=== PATIENT | female | born 1955 | race Caucasian/White ===

== ENCOUNTER 2018-03-15 12:45 | Outpatient (CLI) | payer OTHER | END 2018-03-15 12:46 | disposition home or self-care (01) | LOC: BICMAMMO 12:45 | PROVIDERS: ATTEND Family Medicine | DX: Z12.31 Encounter for screening mammogram for malignant neoplasm of breast (principal); R92.1 Mammographic calcification found on diagnostic imaging of breast; Z80.3 Family history of malignant neoplasm of breast | CPT/HCPCS: 77063; 77067 ==

== ENCOUNTER 2018-03-24 09:44 | Day surgery (SDC) | payer OTHER ==
[2018-03-23 12:32] VITALS: BMI 46.5
--- NOTE | 2018-03-24 14:56 | OP ---
DATE OF PROCEDURE: 03/24/2018 PROCEDURE PERFORMED: Colonoscopy (screening). INDICATION FOR PROCEDURE: Screening for malignant neoplasm of the colon. DESCRIPTION OF PROCEDURE: After the risks and benefits of the procedure were explained to the patient including risks of bleeding, infection, perforation, reactions to anesthesia, aspiration, and/or pain, informed consent was obtained. The patient was then taken to the endoscopy suite, where deep sedation was administered via propofol and anesthesia support. Once adequate sedation was achieved, the patient was maneuvered into the left lateral decubitus position, and when in proper position, a digital rectal examination was performed. Upon completion of this, the standard colonoscope was introduced into the rectum and advanced without difficulty to the terminal ileum. The quality of the prep was excellent. The patient tolerated the procedure well with no immediate perioperative complications. At the conclusion of the procedure, all equipment was removed with the patient taken to Day Stay in satisfactory condition. COLONOSCOPY FINDINGS: Digital rectal exam, normal. Colon findings: Normal-appearing mucosa was seen within the terminal ileum as well as at the appendiceal orifice and ileocecal valve. Normal-appearing mucosa was then seen in the cecum, ascending, transverse, descending, sigmoid colon, and rectum. There was no evidence of polypoid tissue throughout this entire examination. No abnormalities were seen on rectal retroflexion. IMPRESSION: Normal colonoscopy. RECOMMENDATIONS: 1. We would repeat colonoscopy in 10 years as part of screening for malignant neoplasm of the colon. 2. Follow up in the GI Clinic in 4 to 6 weeks for followup on a regular bowel habits. Job ID: [id number]
[2018-03-24] MEDS ORDERED: PHENYLEPHRINE-NS 100 MCG/ML 10 ML SYRINGE ONE (21:33)
[2018-03-24] MEDS ORDERED: Lidocaine 1% PF 5 ML VIAL ONE (21:33)
[2018-03-24] MEDS ORDERED: PROPOFOL 200 MG/20 ML VIAL ONE (21:33)
== END 2018-03-24 14:57 | disposition home or self-care (01) ==
LOC: SDC 09:44
PROVIDERS: ATTEND Internal Medicine
PROC: 0DJD8ZZ Inspection of Lower Intestinal Tract, Via Natural or Artificial Opening Endoscopic (ICD-10-PCS; principal; 2018-03-24)
DX: Z12.11 Encounter for screening for malignant neoplasm of colon (principal); F32.9 Major depressive disorder, single episode, unspecified; I10 Essential (primary) hypertension; E78.00 Pure hypercholesterolemia, unspecified; Z79.899 Other long term (current) drug therapy
CPT/HCPCS: J2001; J2704

== ENCOUNTER 2019-10-11 18:43 | Emergency (ER) | payer OTHER ==
[2019-10-12 14:51] LABS: SARS-CoV-2 MS2 Positive; SARS-CoV-2 N Gene Negative; SARS-CoV-2 S Gene Negative; SARS-CoV-2 orf1ab Negative
== END 2019-10-11 19:02 | disposition home or self-care (01) ==
LOC: ERS 18:43
DX: J34.89 Other specified disorders of nose and nasal sinuses (principal); Z20.828 Contact with and (suspected) exposure to other viral communicable diseases; I10 Essential (primary) hypertension; E78.5 Hyperlipidemia, unspecified; F41.9 Anxiety disorder, unspecified
CPT/HCPCS: 87635; 99283; U0003

== ENCOUNTER 2020-05-12 13:58 | Inpatient (IN) | payer BC, OTHER ==
[~2020-05-12 13:58] MED LIST: Iopamidol-370 76% 500 ML 1 ML ONE
--- NOTE | 2020-05-12 14:51 | RAD ---
RADIOGRAPH CHEST 2 VIEW: DATE: 05/12/2020 TIME: 2:31 PM HISTORY: 65-year-old female with dyspnea and productive cough COMPARISON: 11/16/2011 FINDINGS: New finding of numerous multifocal ill-defined nodular infiltrates throughout upper, mid, and lower l viviana perales. No cardiomegaly, pleural effusion, or pneumothorax. IMPRESSION: Evidence for diffuse mild to moderate COVID 19 pneumonia
[2020-05-12 15:05] LABS: #Lymphocytes 1.4 thou/uL (1.20-3.40); #Monocytes 0.6 thou/uL (0.11-0.59); #Neutrophils 5.4 thou/uL (1.40-6.50); %Basophils 0.4 % (0.0-1.0); %Eosinophils 0.6 % (0.0-10.0); %Lymphocytes 19.1 % (21.0-51.0); %Neutrophils 71.9 % (42.0-75.0); Hemoglobin 13.7 g/dL (12.0-16.0); Mean Corpuscular HGB CONC 32.9 g/dL (32.0-36.0); Mean Corpuscular Volume 91.2 fL (78.0-98.0); Mean Platelet Volume 7.7 fL (7.4-10.4); Platelet Count 296 thou/uL (130-400); Red Blood Cell (RBC) Count 4.57 mill/uL (4.20-5.40); White Blood Cell (WBC) Count 7.5 thou/uL (4.8-10.8)
[2020-05-12 15:27] LABS: ALT (SGPT) 24 U/L (8-55); AST (SGOT) 31 U/L (5-34); Albumin 3.8 g/dL (3.4-4.8); Alkaline Phosphatase 111 U/L (40-110); Anion Gap 17 mmol/L (10-20); BUN (Urea Nitrogen) 30 mg/dL (9.8-20.1); Bilirubin, Total 0.8 mg/dL (0.2-1.2); Calc. Creatinine Clearance 0 mL/min (70-130); Carbon Dioxide 24 mmol/L (23-31); Chloride 105 mmol/L (98-107); Globulin 3.6 g/dL (2.4-3.5); Glucose 98 mg/dL (80-115); Potassium 3.8 mmol/L (3.5-5.1); Protein, Total 7.4 g/dL (5.8-8.1); Sodium 142 mmol/L (136-145)
[2020-05-12 16:02] LABS: SARS-CoV-2 NAA Rapid Test DETECTED (NotDetected)
[2020-05-12] MEDS ORDERED: Dexamethasone 4 mg/ml Vial ONE (16:10)
--- NOTE | 2020-05-12 16:57 | CT ---
Exam: CT angiogram of the chest HISTORY: Elevated d-dimer. Shortness of breath, dyspnea and generalized weakness. Cough times COMPARISON: None TECHNIQUE: CT angiogram of the chest is performed in the axial plane. Three-dimensional reformatted i mages are submitted for interpretation FINDINGS: Mediastinum: No mass, lymphadenopathy or hematoma. Heart: Normal size. No significant pericardial fluid. Aorta: No aneurysm or dissection Upper solid abdominal viscera: No abnormality enhancement. Trachea and central bronchi: Patent Pleural spaces: No effusion Lung parenchyma: Diffuse peripheral groundglass opacities, compatible with COVID 19 pneumonia. Pneumothorax: None Osseous structures: No lytic or blastic lesions Pulmonary arteries: Adequate contrast opacification pulmonary arterial system to the level of segment al arteries. No filling defect to suggest pulmonary embolism IMPRESSION: 1. Multi lobar COVID pneumonia 2. No evidence of pulmonary artery embolism to the level of the segmental arteries.
[2020-05-12] MEDS ORDERED: Acetaminophen 650 MG Suppository PR PRN (17:55)
[2020-05-12] MEDS ORDERED: Albuterol 200 PUFF (6.7GM INHALER) INH PRN (18:05)
[2020-05-12] MEDS: Sodium Chloride 0.9% 1,000 ML IV SCH (18:34)
--- NOTE | 2020-05-12 19:30 | PDOC.HHP ---
Hospitalist HPI History of Present Illness: ADMISSION DATE: 05/12/2020 TIME OF ASSESSMENT: 1700 PRIMARY CARE PHYSICIAN: Dr. Goodrich CHIEF COMPLAINT: Cough and shortness of breath HPI: This is a 65-year-old woman who presents to the emergency department due to persistent coughing fits and subsequent shortness of breath associated with Covid infection which was diagnosed 2 weeks ago. The patient states that she is felt generally weak and has been very sedentary over the last several days. She saw her primary care physician Dr. Jeffrey who prescribed a 5-day course of azithromycin, she completed this 2 days ago. He also gave a 6-day course of oral steroids which she completed yesterday. She was advised to come in if her symptoms did not improve, prompting her to seek medical attention in the ER today. She states the most difficult thing to deal with has been the persisting coughing fits productive for clear sputum but leading to episodes of difficulty with her breathing. Minimal movement such as turning in bed exacerbates her cough. She complains of diffuse soreness involving her thorax as well as ab domen due to the coughing. She has also been experiencing stress incontinence due to coughing. Has not had any fevers or chills but feels generally weak. ROS: No nausea or vomiting. Denies any changes with bowel movements. No dysuria or hematuria. All other review of systems apart from what is mentioned above are negative. ED COURSE: She was initially hypotensive in the ER with a BP of 93/76 and her sats were 86% on room air. Her blood pressure improved to 118/85 and her sats improved to 98% on 2 L by nasal cannula. EKG done in the emergency department showed normal sinus rhythm with a heart rate of 68. No ST changes or T wave abnormalities. Chest x-ray was done showing evidence for diffuse mild to moderate Covid pneumonia. No cardiomegaly, pleural effusion or pneumothorax. Labs done in the ER included a D-dimer which was elevated at 1.36. She therefore underwent a CT angiogram which demonstrated multi lobar Covid pneumon ia but no evidence of PE. Laboratory studies showed a white cell count of 7.5, hemoglobin 13.7, platelets 296, BUN 30, creatinine 1.19, GFR 46, alk phos 111, LFTs normal. She received 1 L normal saline in the emergency department was also IV dexamethasone Rapid Covid testing was positive. PAST MEDICAL HISTORY: 1. Hypertension 2. Hyperlipidemia 3. Anxiety 4. Depression 5. Asthma as a child PAST SURGICAL HISTORY: 1. Tonsillectomy SOCIAL HISTORY: Patient is fully independent at baseline. She denies any histor y of tobacco use, alcohol consumption or drug use. FAMILY HISTORY: Noncontributory Allergies/Adverse Reactions: Allergy/AdvReac Type Severity Reaction Status Date / Time No Known Allergies Allergy Verified 07/02/19 20:23 Home Medications: Medication Instructions Recorded Confirmed Type Atorvastatin Calcium 40 mg PO HS 03/23/18 03/23/18 History FLUoxetine HCl [Fluoxetine HCl] 40 mg PO HS 03/23/18 03/23/18 History Triamterene/Hydrochlorothiazid 1 each PO HS 03/23/18 03/23/18 History [Triamterene-Hctz 37.5-25 mg Cp] Hospitalist HPI ROS All other systems reviewed; all pertinent +/- noted in HPI/Subj Hospitalist Exam Vitals: VS: Temp 98.2, HR 60, BP 28/82, RR 20, O2 sat 100% on 2 L O2 via nasal cannula Weight 257 lb 15.053 oz General Appearance: NAD, awake alert Eye: PERRL, anicteric sclera ENT: normocephalic atraumatic Neck: supple, no lymphadenopathy Heart: RRR, normal peripheral pulses Respiratory: no wheezes, no tachypnea Respiratory - other findings: Coarse lung sounds, coughing exacerbated by deep inspiration Gastrointestinal: soft, non-tender, non-distended, no palpable masses, no guarding, no rigidity Extremities: no edema Skin: normal turgor, no lesions, no rashes Neurological: cranial nerve grossly intact, normal sensation to touch, no weakness Musculoskeletal: normal tone, normal strength, no muscle wasting Psychiatric: normal affect, normal behavior, A&O x 3, oriented to person Hospitalist Results Result Diagrams: 05/12/20 14:56 05/12/20 14:56 Lab results: Laboratory Last Values WBC 7.5 thou/uL (4.8-10.8) 05/12/20 14:56 RBC 4.57 mill/uL (4.20-5.40) 05/12/20 14:56 Hgb 13.7 g/dL (12.0-16.0) 05/12/20 14:56 Hct 41.7 % (36.0-47.0) 05/12/20 14:56 MCV 91.2 fL (78.0-98.0) 05/12/20 14:56 MCH 30.0 pg (27.0-31.0) 05/12/20 14:56 MCHC 32.9 g/dL (32.0-36.0) 05/12/20 14:56 RDW 12.0 % (11.5-14.5) 05/12/20 14:56 Plt Count 296 thou/uL (130-400) 05/12/20 14:56 MPV 7.7 fL (7.4-10.4) 05/12/20 14:56 Neutrophils % 71.9 % (42.0-75.0) 05/12/20 14:56 Lymphocytes % 19.1 % (21.0-51.0) L 05/12/20 14:56 Monocytes % 8.0 % (0.0-10.0) 05/12/20 14:56 Eosinophils % 0.6 % (0.0-10.0) 05/12/20 14:56 Basophils % 0.4 % (0.0-1.0) 05/12/20 14:56 Neutrophils # 5.4 thou/uL (1.40-6.50) 05/12/20 14:56 Lymphocytes # 1.4 thou/uL (1.20-3.40) 05/12/20 14:56 Monocytes # 0.6 thou/uL (0.11-0.59) H 05/12/20 14:56 Eosinophils # 0.0 thou/uL (0.0-0.7) 05/12/20 14:56 Basophils # 0.0 thou/uL (0.0-0.2) 05/12/20 14:56 D-Dimer 1.36 *mcg/mL (0.27-0.43) H 05/12/20 14:56 Sodium 142 mmol/L (136-145) 05/12/20 14:56 Potassium 3.8 mmol/L (3.5-5.1) 05/12/20 14:56 Chloride 105 mmol/L (98-107) 05/12/20 14:56 Carbon Dioxide 24 mmol/L (23-31) 05/12/20 14:56 Anion Gap 17 mmol/L (10-20) 05/12/20 14:56 BUN 30 mg/dL (9.8-20.1) H 05/12/20 14:56 Creatinine 1.19 mg/dL (0.6-1.1) H 05/12/20 14:56 Estimated GFR (MDRD) 46 05/12/20 14:56 Glucose 98 mg/dL (80-115) 05/12/20 14:56 Calcium 9.0 mg/dL (7.8-10.44) 05/12/20 14:56 Magnesium 2.1 mg/dL (1.6-2.6) 05/12/20 14:57 Total Bilirubin 0.8 mg/dL (0.2-1.2) 05/12/20 14:56 AST 31 U/L (5-34) 05/12/20 14:56 ALT 24 U/L (8-55) 05/12/20 14:56 Alkaline Phosphatase 111 U/L (40-110) H 05/12/20 14:56 Troponin I Less than 0.010 ng/mL (< 0.028) 05/12/20 14:56 Serum Total Protein 7.4 g/dL (5.8-8.1) 05/12/20 14:56 Albumin 3.8 g/dL (3.4-4.8) 05/12/20 14:56 Globulin 3.6 g/dL (2.4-3.5) H 05/12/20 14:56 Albumin/Globulin Ratio 1.1 g/dL (1.2-2.2) L 05/12/20 14:56 Influenza A RNA INAAT Not Detected (NotDetected) 05/12/20 15:12 Influenza B RNA INAAT Not Detected (NotDetected) 05/12/20 15:12 SARS-CoV-2 Rap RNA(RT-PCR) DETECTED (NotDetected) A* 05/12/20 15:12 CT scan - chest Status: report reviewed by tx Hospitalist H&P A/P (1) Pneumonia due to COVID-19 virus Code(s): U07.1 - COVID-19; J12.82 - PNEUMONIA DUE TO CORONAVIRUS DISEASE 2019 Status: Acute (2) MARICHUY (acute kidney injury) Code(s): N17.9 - ACUTE KIDNEY FAILURE, UNSPECIFIED Status: Acute (3) Persistent cough Code(s): R05 - COUGH Status: Acute (4) Essential hypertension Code(s): I10 - ESSENTIAL (PRIMARY) HYPERTENSION Status: Chronic (5) Hyperlipidemia Code(s): E78.5 - HYPERLIPIDEMIA, UNSPECIFIED Status: Chronic (6) Anxiety and depression Code(s): F41.9 - ANXIETY DISORDER, UNSPECIFIED; F32.9 - MAJOR DEPRESSIVE DISORDER, SINGLE EPISODE, UNSPECIFIED Status: Chronic Plan: Continue to monitor O2 sats Dexamethasone 6 mg IV daily Zinc and Vitamin C ordered Not a candidate for Remdesivir given 14 days since start of symptoms Albuterol inhalers prn Tessalon for cough Gentle hydration Monitor renal function Avoid nephrotoxic meds Resume home statin Hold antihypertensives for now given low BP GI prophylaxis with Famotidine 20 mg BID DVT prophylaxis with mechanical SCDs and enhanced Lovenox (40 mg BID) CODE STATUS FULL Case discussed with attending who agrees with plan as above.
[2020-05-12] MEDS: FLUoxetine HCl 20 MG CAP PO SCH (21:57)
[2020-05-12] MEDS: Atorvastatin Calcium 40 MG TAB PO SCH (21:57)
[2020-05-12] MEDS: Enoxaparin Sodium 40 MG/0.4 ML SYRINGE SC SCH (21:58)
[2020-05-12] MEDS: Famotidine 20 MG TAB PO SCH (21:58)
[2020-05-12] MEDS ORDERED: Famotidine 20 MG TAB ONE (22:00)
[2020-05-12] MEDS ORDERED: Enoxaparin Sodium 40 MG/0.4 ML SYRINGE ONE (22:00)
[2020-05-13] MEDS: Sodium Chloride 0.9% 1,000 ML IV SCH ×2 (03:33→19:58)
[2020-05-13 04:28] LABS: #Lymphocytes 0.8 thou/uL (1.20-3.40); #Monocytes 0.1 thou/uL (0.11-0.59); %Eosinophils 0.4 % (0.0-10.0); %Lymphocytes 20.3 % (21.0-51.0); %Monocytes 2.2 % (0.0-10.0); %Neutrophils 77.2 % (42.0-75.0); Hemoglobin 12.2 g/dL (12.0-16.0); Mean Corpuscular HGB CONC 33.1 g/dL (32.0-36.0); Mean Corpuscular Hemoglobin 29.7 pg (27.0-31.0); Mean Corpuscular Volume 89.7 fL (78.0-98.0); Mean Platelet Volume 7.7 fL (7.4-10.4); Platelet Count 283 thou/uL (130-400); RBC Distribution Width 11.9 % (11.5-14.5); White Blood Cell (WBC) Count 3.9 thou/uL (4.8-10.8)
[2020-05-13 04:47] LABS: Lactic Acid 3.5 mmol/L (0.5-2.2)
[2020-05-13 04:54] LABS: Anion Gap 16 mmol/L (10-20); BUN (Urea Nitrogen) 25 mg/dL (9.8-20.1); Calc. Creatinine Clearance 125 mL/min (70-130); Calcium 8.4 mg/dL (7.8-10.44); Carbon Dioxide 20 mmol/L (23-31); Chloride 106 mmol/L (98-107); Glucose 167 mg/dL (80-115); Potassium 3.9 mmol/L (3.5-5.1); Sodium 138 mmol/L (136-145)
[2020-05-13] MEDS ORDERED: Dexamethasone 6 MG in Sodium Chloride 0.9% 50 ML IVPB SCH (09:00)
[2020-05-13] MEDS: Enoxaparin Sodium 40 MG/0.4 ML SYRINGE SC SCH ×2 (10:03→20:00)
[2020-05-13] MEDS: Ascorbic Acid 500 mg Chewable Tablet PO SCH (10:03)
[2020-05-13] MEDS: Famotidine 20 MG TAB PO SCH ×2 (10:04→19:59)
[2020-05-13] MEDS: Zinc Sulfate 220 MG CAP PO SCH (10:04)
[2020-05-13] MEDS: Dexamethasone 4 mg/ml Vial SLOW IVP SCH (10:10)
--- NOTE | 2020-05-13 13:44 | PDOC.HOSPP ---
- Subjective Encounter Date: 05/13/20 Encounter Time: 13:42 Subjective: Ms. Flowers was seen today in follow-up of COVID pneumonia and respiratory failure. She notes some dyspnea with minimal exertion. - Objective Vital Signs & Weight: Vital Signs (12 hours) Temp Pulse Resp BP Pulse Ox 05/13/20 11:58 98.3 F 62 16 127/75 95 05/13/20 08:20 97 05/13/20 08:10 98.9 F 55 L 20 152/68 H 97 05/13/20 04:42 98.2 F 68 18 112/58 L 98 05/13/20 04:00 98 Weight Weight 257 lb 15.053 oz I&O: 05/12/20 05/13/20 05/14/20 06:59 06:59 06:59 Intake Total 240 Balance 240 Result Diagrams: 05/13/20 04:04 05/13/20 04:04 Hospitalist ROS - Medication Medications: Active Medications Generic Name Dose Route Start Last Admin Trade Name Freq PRN Reason Stop Dose Admin Ascorbic Acid 1,000 mg 05/13/20 09:00 05/13/20 10:03 Ascorbic Acid 500 Mg Chewable Tablet PO 1,000 mg DAILY EDWINA Administration Atorvastatin Calcium 40 mg 05/12/20 21:00 05/12/20 21:57 Atorvastatin Calcium 40 Mg Tab PO 40 mg HS EDWINA Administration Dexamethasone 6 mg 05/13/20 09:00 05/13/20 10:10 Dexamethasone 4 Mg/Ml Vial SLOW IVP 6 mg DAILY EDWINA Administration Enoxaparin Sodium 40 mg 05/12/20 21:00 05/13/20 10:03 Enoxaparin Sodium 40 Mg/0.4 Ml Syringe SC 40 mg 0900,2100 EDWINA Administration Famotidine 20 mg 05/12/20 21:00 05/13/20 10:04 Famotidine 20 Mg Tab PO 20 mg BID EDWINA Administration Fluoxetine HCl 40 mg 05/12/20 21:00 05/12/20 21:57 Fluoxetine Hcl 20 Mg Cap PO 40 mg HS EDWINA Administration Sodium Chloride 1,000 mls @ 45 mls/hr 05/12/20 18:15 05/13/20 03:33 Normal Saline 0.9% IV 1,000 mls .[id number] EDWINA Administration Zinc Sulfate 220 mg 05/13/20 09:00 05/13/20 10:04 Zinc Sulfate 220 Mg Cap PO 220 mg DAILY EDWINA Administration Hospitalist Exam Vitals: Vital Signs (12 hours) Temp Pulse Resp BP Pulse Ox 05/13/20 11:58 98.3 F 62 16 127/75 95 05/13/20 08:20 97 05/13/20 08:10 98.9 F 55 L 20 152/68 H 97 05/13/20 04:42 98.2 F 68 18 112/58 L 98 05/13/20 04:00 98 Weight Weight 257 lb 15.053 oz Eye: PERRL, anicteric sclera Heart: RRR, no murmur, no gallops, no rubs, normal peripheral pulses Respiratory: no wheezes, no ronchi, rales (at both bases) Gastrointestinal: soft, non-tender, non-distended, normal bowel sounds, no palpable masses, no hepatomegaly Extremities: no cyanosis, 1+ LE edema (good d.p. pulses bilaterally, no lesions) Hosp A/P (1) Pneumonia due to COVID-19 virus Code(s): U07.1 - COVID-19; J12.82 - PNEUMONIA DUE TO CORONAVIRUS DISEASE 2019 Status: Acute (2) Anxiety and depression Code(s): F41.9 - ANXIETY DISORDER, UNSPECIFIED; F32.9 - MAJOR DEPRESSIVE DISORDER, SINGLE EPISODE, UNSPECIFIED Status: Chronic (3) Essential hypertension Code(s): I10 - ESSENTIAL (PRIMARY) HYPERTENSION Status: Chronic (4) Hyperlipidemia Code(s): E78.5 - HYPERLIPIDEMIA, UNSPECIFIED Status: Chronic - Plan * Pneumonia and respiratory failure due to COVID-19- continue Decadron and incentive spirometry * Her symptoms started around April 25, and therefore is out of the window for Remdesivir * Monitor Inflammatory markers * HTN- will need to reconcile and re-start medications * Anxiety and depression- continue Fluoxetine
[2020-05-13] MEDS: guaiFENesin/Codeine 200 mg/20 mg 10 ml Cup PO PRN (16:15)
[2020-05-13] MEDS: Benzonatate 100 MG CAP PO PRN (16:15)
[2020-05-13] MEDS: FLUoxetine HCl 20 MG CAP PO SCH (19:59)
[2020-05-13] MEDS: Atorvastatin Calcium 40 MG TAB PO SCH (20:00)
[2020-05-13] MEDS: Fish Oil 1,000 MG CAP PO SCH (20:00)
[2020-05-14] MEDS: Temazepam 15 MG CAP PO PRN ×2 (00:42→20:07)
[2020-05-14] MEDS: guaiFENesin/Codeine 200 mg/20 mg 10 ml Cup PO PRN ×2 (00:42→14:58)
[2020-05-14] MEDS: Benzonatate 100 MG CAP PO PRN ×2 (00:42→14:58)
[2020-05-14] MEDS: Enoxaparin Sodium 40 MG/0.4 ML SYRINGE SC SCH ×2 (10:33→20:06)
[2020-05-14] MEDS: Dexamethasone 4 mg/ml Vial SLOW IVP SCH (10:34)
[2020-05-14] MEDS: Zinc Sulfate 220 MG CAP PO SCH (10:35)
[2020-05-14] MEDS: Ascorbic Acid 500 mg Chewable Tablet PO SCH (10:35)
[2020-05-14] MEDS: Famotidine 20 MG TAB PO SCH ×2 (10:35→20:06)
--- NOTE | 2020-05-14 14:24 | PDOC.HOSPP ---
- Subjective Encounter Date: 05/14/20 Encounter Time: 14:22 Subjective: Ms. Flowers was seen today in follow-up of COVID pneumonia. She notes feeling more tired today. She also notes some chest tightness, otherwise ok. - Objective Vital Signs & Weight: Vital Signs (12 hours) Temp Pulse Resp BP Pulse Ox 05/14/20 11:33 97.7 F 63 18 126/70 94 L 05/14/20 08:35 97.7 F 54 L 20 150/71 H 97 Weight Weight 257 lb 15.053 oz I&O: 05/13/20 05/14/20 05/15/20 06:59 06:59 06:59 Intake Total 240 1690 360 Output Total 1300 Balance 240 390 360 Result Diagrams: 05/13/20 04:04 05/13/20 04:04 Additional Labs: Accuchecks 05/13/20 20:10 POC Glucose 178 H Hospitalist ROS - Medication Medications: Active Medications Generic Name Dose Route Start Last Admin Trade Name Freq PRN Reason Stop Dose Admin Ascorbic Acid 1,000 mg 05/13/20 09:00 05/14/20 10:35 Ascorbic Acid 500 Mg Chewable Tablet PO 1,000 mg DAILY EDWINA Administration Atorvastatin Calcium 40 mg 05/12/20 21:00 05/13/20 20:00 Atorvastatin Calcium 40 Mg Tab PO 40 mg HS EDWINA Administration Benzonatate 100 mg 05/12/20 18:07 05/14/20 00:42 Benzonatate 100 Mg Cap PO 100 mg TIDPRN PRN Administration Cough Dexamethasone 6 mg 05/13/20 09:00 05/14/20 10:34 Dexamethasone 4 Mg/Ml Vial SLOW IVP 6 mg DAILY EDWINA Administration Enoxaparin Sodium 40 mg 05/12/20 21:00 05/14/20 10:33 Enoxaparin Sodium 40 Mg/0.4 Ml Syringe SC 40 mg 0900,2100 EDWINA Administration Famotidine 20 mg 05/12/20 21:00 05/14/20 10:35 Famotidine 20 Mg Tab PO 20 mg BID EDWINA Administration Fish Oil 1,000 mg 05/13/20 21:00 05/13/20 20:00 Fish Oil 1,000 Mg Cap PO 1,000 mg HS EDWINA Administration Fluoxetine HCl 40 mg 05/12/20 21:00 05/13/20 19:59 Fluoxetine Hcl 20 Mg Cap PO 40 mg HS EDWINA Administration Guaifenesin/Codeine Phosphate 10 ml 05/13/20 13:44 05/14/20 00:42 Guaifenesin/Codeine 200 Mg/20 Mg 10 Ml Cup PO 10 ml Q6H PRN Administration Cough Sodium Chloride 1,000 mls @ 45 mls/hr 05/12/20 18:15 05/13/20 19:58 Normal Saline 0.9% IV 1,000 mls .[id number] EDWINA Administration Temazepam 15 mg 05/13/20 13:44 05/14/20 00:42 Temazepam 15 Mg Cap PO 15 mg HSPRN PRN Administration Insomnia Zinc Sulfate 220 mg 05/13/20 09:00 05/14/20 10:35 Zinc Sulfate 220 Mg Cap PO 220 mg DAILY EDWINA Administration Hospitalist Exam Vitals: Vital Signs (12 hours) Temp Pulse Resp BP Pulse Ox 05/14/20 11:33 97.7 F 63 18 126/70 94 L 05/14/20 08:35 97.7 F 54 L 20 150/71 H 97 Weight Weight 257 lb 15.053 oz Eye: PERRL, anicteric sclera Heart: RRR, no murmur, no gallops, no rubs, normal peripheral pulses Respiratory: no wheezes, no ronchi, rales (at the bases) Gastrointestinal: soft, non-tender, non-distended, normal bowel sounds, no palpable masses Extremities: no cyanosis, 1+ LE edema Hosp A/P (1) Pneumonia due to COVID-19 virus Code(s): U07.1 - COVID-19; J12.82 - PNEUMONIA DUE TO CORONAVIRUS DISEASE 2019 Status: Acute (2) Anxiety and depression Code(s): F41.9 - ANXIETY DISORDER, UNSPECIFIED; F32.9 - MAJOR DEPRESSIVE DISORDER, SINGLE EPISODE, UNSPECIFIED Status: Chronic (3) Essential hypertension Code(s): I10 - ESSENTIAL (PRIMARY) HYPERTENSION Status: Chronic (4) Hyperlipidemia Code(s): E78.5 - HYPERLIPIDEMIA, UNSPECIFIED Status: Chronic - Plan * Pneumonia and respiratory failure due to COVID-19- continue Decadron and incentive spirometry * Inflammatory markers are trending down * HTN- slightly elevated- will re-start Maxide * Anxiety and depression- continue Fluoxetine
[2020-05-14] MEDS: Sodium Chloride 0.9% 1,000 ML IV SCH (14:54)
[2020-05-14] MEDS: Acetaminophen 325 MG TAB PO PRN (17:04)
[2020-05-14] MEDS: FLUoxetine HCl 20 MG CAP PO SCH (20:06)
[2020-05-14] MEDS: Triamterene/Hydrochlorothiazide 37.5 mg/25 mg Tablet PO SCH (20:06)
[2020-05-14] MEDS: Fish Oil 1,000 MG CAP PO SCH (20:07)
[2020-05-14] MEDS: Atorvastatin Calcium 40 MG TAB PO SCH (20:07)
[2020-05-15] MEDS: guaiFENesin/Codeine 200 mg/20 mg 10 ml Cup PO PRN ×3 (03:39→20:04)
[2020-05-15] MEDS ORDERED: Acetaminophen 325 MG/10.15 ML UDCUP ONE (07:26)
[2020-05-15] MEDS: Ascorbic Acid 500 mg Chewable Tablet PO SCH (08:03)
[2020-05-15] MEDS: Dexamethasone 4 mg/ml Vial SLOW IVP SCH (08:04)
[2020-05-15] MEDS: Famotidine 20 MG TAB PO SCH ×2 (08:04→20:02)
[2020-05-15] MEDS: Zinc Sulfate 220 MG CAP PO SCH (08:04)
[2020-05-15] MEDS: Enoxaparin Sodium 40 MG/0.4 ML SYRINGE SC SCH ×2 (08:04→20:03)
[2020-05-15 09:37] LABS: #Lymphocytes 1.2 thou/uL (1.20-3.40); #Monocytes 0.3 thou/uL (0.11-0.59); #Neutrophils 8.8 thou/uL (1.40-6.50); %Eosinophils 0.5 % (0.0-10.0); %Lymphocytes 11.8 % (21.0-51.0); %Monocytes 2.7 % (0.0-10.0); %Neutrophils 85.1 % (42.0-75.0); Hemoglobin 11.7 g/dL (12.0-16.0); Mean Corpuscular HGB CONC 33.2 g/dL (32.0-36.0); Mean Corpuscular Hemoglobin 29.8 pg (27.0-31.0); Mean Corpuscular Volume 89.7 fL (78.0-98.0); Platelet Count 327 thou/uL (130-400); RBC Distribution Width 11.9 % (11.5-14.5); Red Blood Cell (RBC) Count 3.93 mill/uL (4.20-5.40); White Blood Cell (WBC) Count 10.3 thou/uL (4.8-10.8)
[2020-05-15 09:50] LABS: Anion Gap 14 mmol/L (10-20); BUN (Urea Nitrogen) 19 mg/dL (9.8-20.1); Calc. Creatinine Clearance 128 mL/min (70-130); Calcium 8.1 mg/dL (7.8-10.44); Carbon Dioxide 22 mmol/L (23-31); Chloride 106 mmol/L (98-107); Glucose 133 mg/dL (80-115); Potassium 3.6 mmol/L (3.5-5.1); Sodium 138 mmol/L (136-145)
[2020-05-15] MEDS: Sodium Chloride 0.9% 1,000 ML IV SCH (12:15)
[2020-05-15] MEDS: Acetaminophen 325 MG TAB PO PRN ×2 (13:10→23:23)
--- NOTE | 2020-05-15 15:04 | PDOC.HOSPP ---
- Subjective Encounter Date: 05/15/20 Encounter Time: 15:03 Subjective: Ms. Flowers was seen today in follow-up of COVID pneumonia. She notes continued cough, but admits it has improved from the previous day. - Objective Vital Signs & Weight: Vital Signs (12 hours) Temp Pulse Resp BP Pulse Ox 05/15/20 11:43 98.3 F 58 L 18 139/63 94 L 05/15/20 08:10 97.7 F 59 L 14 164/75 H 93 L 05/15/20 04:00 98.8 F 58 L 22 H 160/89 H 94 L Weight Weight 257 lb 15.053 oz I&O: 05/14/20 05/15/20 05/16/20 06:59 06:59 06:59 Intake Total 1690 2021 474 Output Total 1300 1550 Balance 390 471 474 Result Diagrams: 05/15/20 09:22 05/15/20 09:22 Hospitalist ROS - Medication Medications: Active Medications Generic Name Dose Route Start Last Admin Trade Name Freq PRN Reason Stop Dose Admin Acetaminophen 650 mg 05/12/20 17:55 05/15/20 13:10 Acetaminophen 325 Mg Tab PO 650 mg Q4H PRN Administration Headache/Fever/Mild Pain (1-3) Ascorbic Acid 1,000 mg 05/13/20 09:00 05/15/20 08:03 Ascorbic Acid 500 Mg Chewable Tablet PO 1,000 mg DAILY EDWINA Administration Atorvastatin Calcium 40 mg 05/12/20 21:00 05/14/20 20:07 Atorvastatin Calcium 40 Mg Tab PO 40 mg HS EDWINA Administration Benzonatate 100 mg 05/12/20 18:07 05/14/20 14:58 Benzonatate 100 Mg Cap PO 100 mg TIDPRN PRN Administration Cough Dexamethasone 6 mg 05/13/20 09:00 05/15/20 08:04 Dexamethasone 4 Mg/Ml Vial SLOW IVP 6 mg DAILY EDWINA Administration Enoxaparin Sodium 40 mg 05/12/20 21:00 05/15/20 08:04 Enoxaparin Sodium 40 Mg/0.4 Ml Syringe SC 40 mg 0900,2100 EDWINA Administration Famotidine 20 mg 05/12/20 21:00 05/15/20 08:04 Famotidine 20 Mg Tab PO 20 mg BID EDWINA Administration Fish Oil 1,000 mg 05/13/20 21:00 05/14/20 20:07 Fish Oil 1,000 Mg Cap PO 1,000 mg HS EDWINA Administration Fluoxetine HCl 40 mg 05/12/20 21:00 05/14/20 20:06 Fluoxetine Hcl 20 Mg Cap PO 40 mg HS EDWINA Administration Guaifenesin/Codeine Phosphate 10 ml 05/13/20 13:44 05/15/20 10:25 Guaifenesin/Codeine 200 Mg/20 Mg 10 Ml Cup PO 10 ml Q6H PRN Administration Cough Sodium Chloride 1,000 mls @ 45 mls/hr 05/12/20 18:15 05/15/20 12:15 Normal Saline 0.9% IV 1,000 mls .[id number] EDWINA Administration Temazepam 15 mg 05/13/20 13:44 05/14/20 20:07 Temazepam 15 Mg Cap PO 15 mg HSPRN PRN Administration Insomnia Triamterene/Hydrochlorothiazide 1 tab 05/14/20 21:00 05/14/20 20:06 Triamterene/Hydrochlorothiazide 37.5 Mg/25 Mg Tablet PO 1 tab HS EDWINA Administration Zinc Sulfate 220 mg 05/13/20 09:00 05/15/20 08:04 Zinc Sulfate 220 Mg Cap PO 220 mg DAILY EDWINA Administration Hospitalist Exam Vitals: Vital Signs (12 hours) Temp Pulse Resp BP Pulse Ox 05/15/20 11:43 98.3 F 58 L 18 139/63 94 L 05/15/20 08:10 97.7 F 59 L 14 164/75 H 93 L 05/15/20 04:00 98.8 F 58 L 22 H 160/89 H 94 L Weight Weight 257 lb 15.053 oz Eye: PERRL, anicteric sclera Heart: RRR, no murmur, no gallops, no rubs, normal peripheral pulses Respiratory: CTAB, no wheezes, no ronchi, normal chest expansion, no tachypnea, normal percussion, rales (at both bases) Gastrointestinal: soft, non-tender, non-distended, normal bowel sounds, no palpable masses, no hepatomegaly, no splenomegaly Extremities: no cyanosis, no edema Hosp A/P (1) Pneumonia due to COVID-19 virus Code(s): U07.1 - COVID-19; J12.82 - PNEUMONIA DUE TO CORONAVIRUS DISEASE 2019 Status: Acute (2) Anxiety and depression Code(s): F41.9 - ANXIETY DISORDER, UNSPECIFIED; F32.9 - MAJOR DEPRESSIVE DISORDER, SINGLE EPISODE, UNSPECIFIED Status: Chronic (3) Essential hypertension Code(s): I10 - ESSENTIAL (PRIMARY) HYPERTENSION Status: Chronic (4) Hyperlipidemia Code(s): E78.5 - HYPERLIPIDEMIA, UNSPECIFIED Status: Chronic - Plan * Pneumonia and respiratory failure due to COVID-19- continue Decadron and incentive spirometry * Inflammatory markers are trending down * HTN- slightly elevated- will re-start Maxide * Anxiety and depression- continue Fluoxetine * She has remained stable, with decreasing inflammatory markers, once she is on 3 lites or less on supplemental oxygen then she can be discharged home.
[2020-05-15] MEDS: Atorvastatin Calcium 40 MG TAB PO SCH (20:02)
[2020-05-15] MEDS: FLUoxetine HCl 20 MG CAP PO SCH (20:02)
[2020-05-15] MEDS: Fish Oil 1,000 MG CAP PO SCH (20:03)
[2020-05-15] MEDS: Temazepam 15 MG CAP PO PRN (20:03)
[2020-05-15] MEDS: Triamterene/Hydrochlorothiazide 37.5 mg/25 mg Tablet PO SCH (20:04)
[2020-05-16] MEDS: Famotidine 20 MG TAB PO SCH ×2 (08:29→21:28)
[2020-05-16] MEDS: Benzonatate 100 MG CAP PO PRN (08:29)
[2020-05-16] MEDS: Enoxaparin Sodium 40 MG/0.4 ML SYRINGE SC SCH ×2 (08:29→21:28)
[2020-05-16] MEDS: Ascorbic Acid 500 mg Chewable Tablet PO SCH (08:30)
[2020-05-16] MEDS: Zinc Sulfate 220 MG CAP PO SCH (08:30)
[2020-05-16] MEDS: Dexamethasone 4 mg/ml Vial SLOW IVP SCH (08:30)
[2020-05-16] MEDS: guaiFENesin/Codeine 200 mg/20 mg 10 ml Cup PO PRN ×2 (08:34→21:28)
[2020-05-16] MEDS: Sodium Chloride 0.9% 1,000 ML IV SCH (10:27)
[2020-05-16] MEDS: Acetaminophen 325 MG TAB PO PRN ×2 (13:13→21:29)
--- NOTE | 2020-05-16 14:25 | PDOC.HOSPP ---
- Subjective Encounter Date: 05/16/20 Encounter Time: 14:24 Subjective: Ms. Flowers was seen today in follow-up of COVID pneumonia and respiratory failure. She says she is beginning to feel a little better. No new complaints. - Objective Vital Signs & Weight: Vital Signs (12 hours) Temp Pulse Resp BP Pulse Ox 05/16/20 13:32 104/53 L 05/16/20 12:00 98.4 F 56 L 28 H 206/96 H 94 L 05/16/20 08:30 98.2 F 62 23 H 113/54 L 92 L 05/16/20 04:00 96.2 F L 58 L 14 145/82 H 94 L Weight Weight 257 lb 15.053 oz I&O: 05/15/20 05/16/20 05/17/20 06:59 06:59 06:59 Intake Total 1 2610 480 Output Total 1550 3100 550 Balance 471 -490 -70 Result Diagrams: 05/15/20 09:22 05/15/20 09:22 Hospitalist ROS - Medication Medications: Active Medications Generic Name Dose Route Start Last Admin Trade Name Freq PRN Reason Stop Dose Admin Acetaminophen 650 mg 05/12/20 17:55 05/16/20 13:13 Acetaminophen 325 Mg Tab PO 650 mg Q4H PRN Administration Headache/Fever/Mild Pain (1-3) Ascorbic Acid 1,000 mg 05/13/20 09:00 05/16/20 08:30 Ascorbic Acid 500 Mg Chewable Tablet PO 1,000 mg DAILY EDWINA Administration Atorvastatin Calcium 40 mg 05/12/20 21:00 05/15/20 20:02 Atorvastatin Calcium 40 Mg Tab PO 40 mg HS EDWINA Administration Benzonatate 100 mg 05/12/20 18:07 05/16/20 08:29 Benzonatate 100 Mg Cap PO 100 mg TIDPRN PRN Administration Cough Dexamethasone 6 mg 05/13/20 09:00 05/16/20 08:30 Dexamethasone 4 Mg/Ml Vial SLOW IVP 6 mg DAILY EDWINA Administration Enoxaparin Sodium 40 mg 05/12/20 21:00 05/16/20 08:29 Enoxaparin Sodium 40 Mg/0.4 Ml Syringe SC 40 mg 0900,2100 EDWINA Administration Famotidine 20 mg 05/12/20 21:00 05/16/20 08:29 Famotidine 20 Mg Tab PO 20 mg BID EDWINA Administration Fish Oil 1,000 mg 05/13/20 21:00 05/15/20 20:03 Fish Oil 1,000 Mg Cap PO 1,000 mg HS EDWINA Administration Fluoxetine HCl 40 mg 05/12/20 21:00 05/15/20 20:02 Fluoxetine Hcl 20 Mg Cap PO 40 mg HS EDWINA Administration Guaifenesin/Codeine Phosphate 10 ml 05/13/20 13:44 05/16/20 08:34 Guaifenesin/Codeine 200 Mg/20 Mg 10 Ml Cup PO 10 ml Q6H PRN Administration Cough Sodium Chloride 1,000 mls @ 45 mls/hr 05/12/20 18:15 05/16/20 10:27 Normal Saline 0.9% IV 1,000 mls .[id number] EDWINA Administration Temazepam 15 mg 05/13/20 13:44 05/15/20 20:03 Temazepam 15 Mg Cap PO 15 mg HSPRN PRN Administration Insomnia Triamterene/Hydrochlorothiazide 1 tab 05/14/20 21:00 05/15/20 20:04 Triamterene/Hydrochlorothiazide 37.5 Mg/25 Mg Tablet PO 1 tab HS EDWINA Administration Zinc Sulfate 220 mg 05/13/20 09:00 05/16/20 08:30 Zinc Sulfate 220 Mg Cap PO 220 mg DAILY EDWINA Administration Hospitalist Exam Vitals: Vital Signs (12 hours) Temp Pulse Resp BP Pulse Ox 05/16/20 13:32 104/53 L 05/16/20 12:00 98.4 F 56 L 28 H 206/96 H 94 L 05/16/20 08:30 98.2 F 62 23 H 113/54 L 92 L 05/16/20 04:00 96.2 F L 58 L 14 145/82 H 94 L Weight Weight 257 lb 15.053 oz Eye: PERRL, anicteric sclera Heart: RRR, no murmur, no gallops, no rubs, normal peripheral pulses Respiratory: no wheezes, no ronchi, rales Gastrointestinal: soft, non-tender, non-distended, normal bowel sounds, no palpable masses, no hepatomegaly Extremities: no cyanosis, 1+ LE edema Hosp A/P (1) Pneumonia due to COVID-19 virus Code(s): U07.1 - COVID-19; J12.82 - PNEUMONIA DUE TO CORONAVIRUS DISEASE 2018 Status: Acute (2) Anxiety and depression Code(s): F41.9 - ANXIETY DISORDER, UNSPECIFIED; F32.9 - MAJOR DEPRESSIVE DISORDER, SINGLE EPISODE, UNSPECIFIED Status: Chronic (3) Essential hypertension Code(s): I10 - ESSENTIAL (PRIMARY) HYPERTENSION Status: Chronic (4) Hyperlipidemia Code(s): E78.5 - HYPERLIPIDEMIA, UNSPECIFIED Status: Chronic - Plan * Pneumonia and respiratory failure due to COVID-19- continue Decadron and incentive spirometry * Inflammatory markers are trending down * HTN- slightly elevated-continue Maxide * Anxiety and depression- continue Fluoxetine * She continues to remain stable- she can be discharged once she is on 3L or less of supplemental oxygen
[2020-05-16] MEDS: Triamterene/Hydrochlorothiazide 37.5 mg/25 mg Tablet PO SCH (21:28)
[2020-05-16] MEDS: FLUoxetine HCl 20 MG CAP PO SCH (21:28)
[2020-05-16] MEDS: Fish Oil 1,000 MG CAP PO SCH (21:28)
[2020-05-16] MEDS: Temazepam 15 MG CAP PO PRN (21:28)
[2020-05-16] MEDS: Atorvastatin Calcium 40 MG TAB PO SCH (21:28)
[2020-05-17] MEDS: Enoxaparin Sodium 40 MG/0.4 ML SYRINGE SC SCH ×2 (07:58→20:13)
[2020-05-17] MEDS: guaiFENesin/Codeine 200 mg/20 mg 10 ml Cup PO PRN ×3 (07:58→21:55)
[2020-05-17] MEDS: Benzonatate 100 MG CAP PO PRN ×3 (07:58→21:55)
[2020-05-17] MEDS: Dexamethasone 4 mg/ml Vial SLOW IVP SCH (07:58)
[2020-05-17] MEDS: Famotidine 20 MG TAB PO SCH ×2 (08:02→20:14)
[2020-05-17] MEDS: Zinc Sulfate 220 MG CAP PO SCH (08:03)
[2020-05-17] MEDS: Ascorbic Acid 500 mg Chewable Tablet PO SCH (08:03)
[2020-05-17] MEDS ORDERED: Sodium Chloride 0.9% 500 ML IV SCH (09:45)
--- NOTE | 2020-05-17 10:58 | PDOC.HOSPP ---
- Subjective Encounter Date: 05/17/20 Subjective: state that she is doing better. - Objective Vital Signs & Weight: Vital Signs (12 hours) Temp Pulse Resp BP Pulse Ox 05/17/20 08:30 97.7 F 73 22 H 106/56 L 93 L 05/17/20 03:55 97.7 F 61 18 133/75 92 L 05/17/20 03:47 97.7 F 61 18 133/75 92 L 05/17/20 00:16 93 L 05/17/20 00:00 98.9 F 56 L 18 171/79 H 93 L Weight Weight 257 lb 15.053 oz I&O: 05/16/20 05/17/20 05/18/20 06:59 06:59 06:59 Intake Total 2610 1165 Output Total 3109 0334 650 Balance -490 -2485 -650 Result Diagrams: 05/15/20 09:22 05/15/20 09:22 Hospitalist ROS - Medication Medications: Active Medications Generic Name Dose Route Start Last Admin Trade Name Freq PRN Reason Stop Dose Admin Acetaminophen 650 mg 05/12/20 17:55 05/16/20 21:29 Acetaminophen 325 Mg Tab PO 650 mg Q4H PRN Administration Headache/Fever/Mild Pain (1-3) Ascorbic Acid 1,000 mg 05/13/20 09:00 05/17/20 08:03 Ascorbic Acid 500 Mg Chewable Tablet PO 1,000 mg DAILY EDWINA Administration Atorvastatin Calcium 40 mg 05/12/20 21:00 05/16/20 21:28 Atorvastatin Calcium 40 Mg Tab PO 40 mg HS EDWINA Administration Benzonatate 100 mg 05/12/20 18:07 05/17/20 07:58 Benzonatate 100 Mg Cap PO 100 mg TIDPRN PRN Administration Cough Dexamethasone 6 mg 05/13/20 09:00 05/17/20 07:58 Dexamethasone 4 Mg/Ml Vial SLOW IVP 6 mg DAILY EDWINA Administration Enoxaparin Sodium 40 mg 05/12/20 21:00 05/17/20 07:58 Enoxaparin Sodium 40 Mg/0.4 Ml Syringe SC 40 mg 0900,2100 EDWINA Administration Famotidine 20 mg 05/12/20 21:00 05/17/20 08:02 Famotidine 20 Mg Tab PO 20 mg BID EDWINA Administration Fish Oil 1,000 mg 05/13/20 21:00 05/16/20 21:28 Fish Oil 1,000 Mg Cap PO 1,000 mg HS EDWINA Administration Fluoxetine HCl 40 mg 05/12/20 21:00 05/16/20 21:28 Fluoxetine Hcl 20 Mg Cap PO 40 mg HS EDWINA Administration Guaifenesin/Codeine Phosphate 10 ml 05/13/20 13:44 05/17/20 07:58 Guaifenesin/Codeine 200 Mg/20 Mg 10 Ml Cup PO 10 ml Q6H PRN Administration Cough Temazepam 15 mg 05/13/20 13:44 05/16/20 21:28 Temazepam 15 Mg Cap PO 15 mg HSPRN PRN Administration Insomnia Triamterene/Hydrochlorothiazide 1 tab 05/14/20 21:00 05/16/20 21:28 Triamterene/Hydrochlorothiazide 37.5 Mg/25 Mg Tablet PO 1 tab HS EDWINA Administration Zinc Sulfate 220 mg 05/13/20 09:00 05/17/20 08:03 Zinc Sulfate 220 Mg Cap PO 220 mg DAILY EDWINA Administration Hospitalist Exam Vitals: Vital Signs (12 hours) Temp Pulse Resp BP Pulse Ox 05/17/20 08:30 97.7 F 73 22 H 106/56 L 93 L 05/17/20 03:55 97.7 F 61 18 133/75 92 L 05/17/20 03:47 97.7 F 61 18 133/75 92 L 05/17/20 00:16 93 L 05/17/20 00:00 98.9 F 56 L 18 171/79 H 93 L Weight Weight 257 lb 15.053 oz General Appearance: NAD, awake alert Eye: PERRL ENT: normocephalic atraumatic Neck: supple, symmetric
[2020-05-17] MEDS ORDERED: diphenhydrAMINE 25 MG CAP PO PRN (18:42)
--- NOTE | 2020-05-17 18:48 | PDOC.HOSPP ---
- Subjective Subjective: feels better , but reports inability to sleep. - Objective Vital Signs & Weight: Vital Signs (12 hours) Temp Pulse Resp BP Pulse Ox 05/17/20 17:00 97.2 F L 05/17/20 16:00 66 20 156/86 H 92 L 05/17/20 11:00 97.7 F 67 20 117/59 L 94 L 05/17/20 08:30 97.7 F 73 22 H 106/56 L 93 L Weight Weight 257 lb 15.053 oz I&O: 05/16/20 05/17/20 05/18/20 06:59 06:59 06:59 Intake Total 2610 1165 1440 Output Total 3802 9060 0453 Balance -263 -2351 -679 Result Diagrams: 05/15/20 09:22 05/15/20 09:22 Hospitalist ROS - Medication Medications: Active Medications Generic Name Dose Route Start Last Admin Trade Name Freq PRN Reason Stop Dose Admin Acetaminophen 650 mg 05/12/20 17:55 05/16/20 21:29 Acetaminophen 325 Mg Tab PO 650 mg Q4H PRN Administration Headache/Fever/Mild Pain (1-3) Ascorbic Acid 1,000 mg 05/13/20 09:00 05/17/20 08:03 Ascorbic Acid 500 Mg Chewable Tablet PO 1,000 mg DAILY EDWINA Administration Atorvastatin Calcium 40 mg 05/12/20 21:00 05/16/20 21:28 Atorvastatin Calcium 40 Mg Tab PO 40 mg HS EDWINA Administration Benzonatate 100 mg 05/12/20 18:07 05/17/20 16:55 Benzonatate 100 Mg Cap PO 100 mg TIDPRN PRN Administration Cough Dexamethasone 6 mg 05/13/20 09:00 05/17/20 07:58 Dexamethasone 4 Mg/Ml Vial SLOW IVP 6 mg DAILY EDWINA Administration Enoxaparin Sodium 40 mg 05/12/20 21:00 05/17/20 07:58 Enoxaparin Sodium 40 Mg/0.4 Ml Syringe SC 40 mg 0900,2100 EDWINA Administration Famotidine 20 mg 05/12/20 21:00 05/17/20 08:02 Famotidine 20 Mg Tab PO 20 mg BID EDWINA Administration Fish Oil 1,000 mg 05/13/20 21:00 05/16/20 21:28 Fish Oil 1,000 Mg Cap PO 1,000 mg HS EDWINA Administration Fluoxetine HCl 40 mg 05/12/20 21:00 05/16/20 21:28 Fluoxetine Hcl 20 Mg Cap PO 40 mg HS EDWINA Administration Guaifenesin/Codeine Phosphate 10 ml 05/13/20 13:44 05/17/20 16:55 Guaifenesin/Codeine 200 Mg/20 Mg 10 Ml Cup PO 10 ml Q6H PRN Administration Cough Temazepam 15 mg 05/13/20 13:44 05/16/20 21:28 Temazepam 15 Mg Cap PO 15 mg HSPRN PRN Administration Insomnia Triamterene/Hydrochlorothiazide 1 tab 05/14/20 21:00 05/16/20 21:28 Triamterene/Hydrochlorothiazide 37.5 Mg/25 Mg Tablet PO 1 tab HS EDWINA Administration Zinc Sulfate 220 mg 05/13/20 09:00 05/17/20 08:03 Zinc Sulfate 220 Mg Cap PO 220 mg DAILY EDWINA Administration Hospitalist Exam Vitals: Vital Signs (12 hours) Temp Pulse Resp BP Pulse Ox 05/17/20 17:00 97.2 F L 05/17/20 16:00 66 20 156/86 H 92 L 05/17/20 11:00 97.7 F 67 20 117/59 L 94 L 05/17/20 08:30 97.7 F 73 22 H 106/56 L 93 L Weight Weight 257 lb 15.053 oz General Appearance: NAD Eye: PERRL ENT: normocephalic atraumatic, no oropharyngeal lesions Neck: supple, symmetric, no JVD Heart: RRR, no murmur, no gallops Respiratory: rales Gastrointestinal: soft, non-tender Hosp A/P (1) Persistent cough Code(s): R05 - COUGH Status: Acute (2) Pneumonia due to COVID-19 virus Code(s): U07.1 - COVID-19; J12.82 - PNEUMONIA DUE TO CORONAVIRUS DISEASE 2019 Status: Acute (3) Anxiety and depression Code(s): F41.9 - ANXIETY DISORDER, UNSPECIFIED; F32.9 - MAJOR DEPRESSIVE DISORDER, SINGLE EPISODE, UNSPECIFIED Status: Chronic (4) Essential hypertension Code(s): I10 - ESSENTIAL (PRIMARY) HYPERTENSION Status: Chronic - Plan plan for today 2/6 she is breathing better but still easily desats with movement. I will ad Benadryl PRN to sleep. will continue curent management, will recheck labs in am.
[2020-05-17] MEDS: Atorvastatin Calcium 40 MG TAB PO SCH (20:14)
[2020-05-17] MEDS: FLUoxetine HCl 20 MG CAP PO SCH (20:14)
[2020-05-17] MEDS: Triamterene/Hydrochlorothiazide 37.5 mg/25 mg Tablet PO SCH (20:14)
[2020-05-17] MEDS: Fish Oil 1,000 MG CAP PO SCH (20:14)
--- NOTE | 2020-05-17 20:23 | EKG ---
Test Reason : SOB Blood Pressure : / mmHG Vent. Rate : 068 BPM Atrial Rate : 068 BPM P-R Int : 188 ms QRS Dur : 094 ms QT Int : 412 ms P-R-T Axes : 039 -06 032 degrees QTc Int : 438 ms Normal sinus rhythm Normal ECG Confirmed by JACK CARDOSO M.D. ([id number]), story editor SUNNY RICHTER ([id number]) on 05/17/2020 8:23:04 PM Referred By: WALKER Confirmed By:JACK CARDOSO M.D.
[2020-05-17] MEDS: Temazepam 15 MG CAP PO PRN (21:55)
[2020-05-18 05:41] LABS: #Eosinphils 0.1 thou/uL (0.0-0.7); #Lymphocytes 1.8 thou/uL (1.20-3.40); #Monocytes 0.7 thou/uL (0.11-0.59); #Neutrophils 6.7 thou/uL (1.40-6.50); %Basophils 0.1 % (0.0-1.0); %Eosinophils 0.7 % (0.0-10.0); %Lymphocytes 19.2 % (21.0-51.0); %Monocytes 7.6 % (0.0-10.0); %Neutrophils 72.3 % (42.0-75.0); Hemoglobin 12.8 g/dL (12.0-16.0); Mean Corpuscular HGB CONC 33.1 g/dL (32.0-36.0); Mean Corpuscular Hemoglobin 29.4 pg (27.0-31.0); Mean Corpuscular Volume 88.9 fL (78.0-98.0); Mean Platelet Volume 7.7 fL (7.4-10.4); Platelet Count 316 thou/uL (130-400); RBC Distribution Width 11.8 % (11.5-14.5); Red Blood Cell (RBC) Count 4.34 mill/uL (4.20-5.40); White Blood Cell (WBC) Count 9.3 thou/uL (4.8-10.8)
[2020-05-18 06:00] LABS: Anion Gap 14 mmol/L (10-20); BUN (Urea Nitrogen) 22 mg/dL (9.8-20.1); CRP (Inflammatory) Less than 0.50 mg/dL (= or < 0.5); Calc. Creatinine Clearance 131 mL/min (70-130); Calcium 8.6 mg/dL (7.8-10.44); Carbon Dioxide 24 mmol/L (23-31); Chloride 103 mmol/L (98-107); Glucose 104 mg/dL (80-115); Potassium 4.4 mmol/L (3.5-5.1); Sodium 137 mmol/L (136-145)
[2020-05-18] MEDS: Famotidine 20 MG TAB PO SCH ×2 (08:50→20:11)
[2020-05-18] MEDS: Ascorbic Acid 500 mg Chewable Tablet PO SCH (08:51)
[2020-05-18] MEDS: Enoxaparin Sodium 40 MG/0.4 ML SYRINGE SC SCH ×2 (08:52→20:10)
[2020-05-18] MEDS: Zinc Sulfate 220 MG CAP PO SCH (08:52)
[2020-05-18] MEDS: Dexamethasone 4 mg/ml Vial SLOW IVP SCH (08:52)
[2020-05-18] MEDS ORDERED: Sodium Chloride 0.9% 1,000 ML IV SCH (10:15)
--- NOTE | 2020-05-18 12:38 | PDOC.HOSPP ---
- Subjective Encounter Date: 05/18/20 Subjective: still feels weak - Objective Vital Signs & Weight: Vital Signs (12 hours) Temp Pulse Resp BP Pulse Ox 05/18/20 12:00 98.3 F 69 18 96/55 L 94 L 05/18/20 11:31 107/54 L 05/18/20 09:00 97.9 F 66 20 88/55 L 94 L 05/18/20 08:50 94 L 05/18/20 05:08 95 05/18/20 03:00 96.6 F L 64 18 108/64 Weight Weight 257 lb 15.053 oz I&O: 05/17/20 05/18/20 05/19/20 06:59 06:59 06:59 Intake Total 1160 3148 Output Total 2492 3358 Balance -0394 -4711 Result Diagrams: 05/18/20 05:30 05/18/20 05:30 Hospitalist ROS - Medication Medications: Active Medications Generic Name Dose Route Start Last Admin Trade Name Freq PRN Reason Stop Dose Admin Acetaminophen 650 mg 05/12/20 17:55 05/16/20 21:29 Acetaminophen 325 Mg Tab PO 650 mg Q4H PRN Administration Headache/Fever/Mild Pain (1-3) Ascorbic Acid 1,000 mg 05/13/20 09:00 05/18/20 08:51 Ascorbic Acid 500 Mg Chewable Tablet PO 1,000 mg DAILY EDWINA Administration Atorvastatin Calcium 40 mg 05/12/20 21:00 05/17/20 20:14 Atorvastatin Calcium 40 Mg Tab PO 40 mg HS EDWINA Administration Benzonatate 100 mg 05/12/20 18:07 05/17/20 21:55 Benzonatate 100 Mg Cap PO 100 mg TIDPRN PRN Administration Cough Dexamethasone 6 mg 05/13/20 09:00 05/18/20 08:52 Dexamethasone 4 Mg/Ml Vial SLOW IVP 6 mg DAILY EDWINA Administration Enoxaparin Sodium 40 mg 05/12/20 21:00 05/18/20 08:52 Enoxaparin Sodium 40 Mg/0.4 Ml Syringe SC 40 mg 0900,2100 EDWINA Administration Famotidine 20 mg 05/12/20 21:00 05/18/20 08:50 Famotidine 20 Mg Tab PO 20 mg BID EDWINA Administration Fish Oil 1,000 mg 05/13/20 21:00 05/17/20 20:14 Fish Oil 1,000 Mg Cap PO 1,000 mg HS EDWINA Administration Fluoxetine HCl 40 mg 05/12/20 21:00 05/17/20 20:14 Fluoxetine Hcl 20 Mg Cap PO 40 mg HS EDWINA Administration Guaifenesin/Codeine Phosphate 10 ml 05/13/20 13:44 05/17/20 21:55 Guaifenesin/Codeine 200 Mg/20 Mg 10 Ml Cup PO 10 ml Q6H PRN Administration Cough Sodium Chloride 10 ml 05/12/20 17:55 05/17/20 20:14 Flush - Normal Saline 10 Ml Syringe IVF 10 ml Q12HR PRN Administration Saline Flush Temazepam 15 mg 05/13/20 13:44 05/17/20 21:55 Temazepam 15 Mg Cap PO 15 mg HSPRN PRN Administration Insomnia Zinc Sulfate 220 mg 05/13/20 09:00 05/18/20 08:52 Zinc Sulfate 220 Mg Cap PO 220 mg DAILY EDWINA Administration Hospitalist Exam Vitals: Vital Signs (12 hours) Temp Pulse Resp BP Pulse Ox 05/18/20 12:00 98.3 F 69 18 96/55 L 94 L 05/18/20 11:31 107/54 L 05/18/20 09:00 97.9 F 66 20 88/55 L 94 L 05/18/20 08:50 94 L 05/18/20 05:08 95 05/18/20 03:00 96.6 F L 64 18 108/64 Weight Weight 257 lb 15.053 oz General Appearance: NAD Eye: PERRL ENT: normocephalic atraumatic Neck: supple, symmetric Heart: RRR, no murmur, no gallops Respiratory: rales (diffuse and bilateral) Gastrointestinal: soft, non-tender, non-distended Neurological: cranial nerve grossly intact, normal sensation to touch Hosp A/P (1) Persistent cough Code(s): R05 - COUGH Status: Acute (2) Pneumonia due to COVID-19 virus Code(s): U07.1 - COVID-19; J12.82 - PNEUMONIA DUE TO CORONAVIRUS DISEASE 2019 Status: Acute (3) Anxiety and depression Code(s): F41.9 - ANXIETY DISORDER, UNSPECIFIED; F32.9 - MAJOR DEPRESSIVE DISORDER, SINGLE EPISODE, UNSPECIFIED Status: Chronic (4) Essential hypertension Code(s): I10 - ESSENTIAL (PRIMARY) HYPERTENSION Status: Chronic - Plan plan for today 05/17 she is breathing better but still easily desats with movement. I will ad Benadryl PRN to sleep. will continue current management, will recheck labs in am. plan for today 05/18 She has been having episodes of hypotension in am. she had one today , she was given 1 l of NS, she responded to that. She has been on diuretics combo which I will stop. PT consulted.
[2020-05-18] MEDS: Benzonatate 100 MG CAP PO PRN ×2 (12:58→23:09)
[2020-05-18] MEDS: Fish Oil 1,000 MG CAP PO SCH (20:11)
[2020-05-18] MEDS: FLUoxetine HCl 20 MG CAP PO SCH (20:11)
[2020-05-18] MEDS: Atorvastatin Calcium 40 MG TAB PO SCH (20:11)
[2020-05-18 21:16] LABS: Anion Gap 16 mmol/L (10-20); Carbon Dioxide 18 mmol/L (23-31); Chloride 105 mmol/L (98-107); Magnesium 1.9 mg/dL (1.6-2.6); Potassium 4.3 mmol/L (3.5-5.1); Sodium 135 mmol/L (136-145)
[2020-05-18] MEDS: Sodium Chloride 0.45% 1,000 ML IV SCH (21:59)
[2020-05-18] MEDS ORDERED: Magnesium 2 GM/50 ML 2 GM in Premix Bag 1 BAG IVPB SCH (22:00)
[2020-05-18] MEDS: guaiFENesin/Codeine 200 mg/20 mg 10 ml Cup PO PRN (23:09)
[2020-05-19] MEDS: Sodium Chloride 0.45% 1,000 ML IV SCH ×5 (04:52→15:47)
[2020-05-19] MEDS: Famotidine 20 MG TAB PO SCH ×2 (08:35→21:05)
[2020-05-19] MEDS: Enoxaparin Sodium 40 MG/0.4 ML SYRINGE SC SCH ×2 (08:36→21:06)
[2020-05-19] MEDS: Dexamethasone 4 mg/ml Vial SLOW IVP SCH (08:36)
[2020-05-19] MEDS: Zinc Sulfate 220 MG CAP PO SCH (08:36)
[2020-05-19] MEDS: Benzonatate 100 MG CAP PO PRN ×2 (08:36→21:20)
[2020-05-19] MEDS: Ascorbic Acid 500 mg Chewable Tablet PO SCH (08:36)
[2020-05-19 11:00] LABS: #Eosinphils 0.1 thou/uL (0.0-0.7); #Lymphocytes 1.5 thou/uL (1.20-3.40); #Monocytes 0.8 thou/uL (0.11-0.59); #Neutrophils 9.9 thou/uL (1.40-6.50); %Eosinophils 0.7 % (0.0-10.0); %Monocytes 6.3 % (0.0-10.0); Hemoglobin 11.9 g/dL (12.0-16.0); Mean Corpuscular HGB CONC 32.9 g/dL (32.0-36.0); Mean Corpuscular Hemoglobin 29.7 pg (27.0-31.0); Mean Corpuscular Volume 90.2 fL (78.0-98.0); Mean Platelet Volume 7.9 fL (7.4-10.4); Platelet Count 355 thou/uL (130-400); RBC Distribution Width 11.8 % (11.5-14.5); Red Blood Cell (RBC) Count 3.99 mill/uL (4.20-5.40); White Blood Cell (WBC) Count 12.2 thou/uL (4.8-10.8)
[2020-05-19 11:19] LABS: Anion Gap 12 mmol/L (10-20); BUN (Urea Nitrogen) 24 mg/dL (9.8-20.1); Calc. Creatinine Clearance 138 mL/min (70-130); Carbon Dioxide 22 mmol/L (23-31); Chloride 106 mmol/L (98-107); Glucose 107 mg/dL (80-115); Sodium 136 mmol/L (136-145)
--- NOTE | 2020-05-19 15:37 | PDOC.HOSPP ---
- Subjective Encounter Date: 05/19/20 - Objective Vital Signs & Weight: Vital Signs (12 hours) Temp Pulse Resp BP Pulse Ox 05/19/20 12:15 96.5 F L 74 18 135/68 94 L 05/19/20 08:44 97.3 F L 68 18 122/64 92 L 05/19/20 04:30 97.7 F 60 17 123/77 98 05/19/20 03:39 98 Weight Weight 257 lb 15.053 oz I&O: 05/18/20 05/19/20 05/20/20 06:59 06:59 06:59 Intake Total 1868 4633 Output Total 3411 2325 Balance -1542 2308 Result Diagrams: 05/19/20 10:25 05/19/20 10:25 Hospitalist ROS - Medication Medications: Active Medications Generic Name Dose Route Start Last Admin Trade Name Freq PRN Reason Stop Dose Admin Acetaminophen 650 mg 05/12/20 17:55 05/16/20 21:29 Acetaminophen 325 Mg Tab PO 650 mg Q4H PRN Administration Headache/Fever/Mild Pain (1-3) Ascorbic Acid 1,000 mg 05/13/20 09:00 05/19/20 08:36 Ascorbic Acid 500 Mg Chewable Tablet PO 1,000 mg DAILY EDWINA Administration Atorvastatin Calcium 40 mg 05/12/20 21:00 05/18/20 20:11 Atorvastatin Calcium 40 Mg Tab PO 40 mg HS EDWINA Administration Benzonatate 100 mg 05/12/20 18:07 05/19/20 08:36 Benzonatate 100 Mg Cap PO 100 mg TIDPRN PRN Administration Cough Dexamethasone 6 mg 05/13/20 09:00 05/19/20 08:36 Dexamethasone 4 Mg/Ml Vial SLOW IVP 6 mg DAILY EDWINA Administration Enoxaparin Sodium 40 mg 05/12/20 21:00 05/19/20 08:36 Enoxaparin Sodium 40 Mg/0.4 Ml Syringe SC 40 mg 0900,2100 EDWINA Administration Famotidine 20 mg 05/12/20 21:00 05/19/20 08:35 Famotidine 20 Mg Tab PO 20 mg BID EDWINA Administration Fish Oil 1,000 mg 05/13/20 21:00 05/18/20 20:11 Fish Oil 1,000 Mg Cap PO 1,000 mg HS EDWINA Administration Fluoxetine HCl 40 mg 05/12/20 21:00 05/18/20 20:11 Fluoxetine Hcl 20 Mg Cap PO 40 mg HS EDWINA Administration Guaifenesin/Codeine Phosphate 10 ml 05/13/20 13:44 05/18/20 23:09 Guaifenesin/Codeine 200 Mg/20 Mg 10 Ml Cup PO 10 ml Q6H PRN Administration Cough Sodium Chloride 10 ml 05/12/20 17:55 05/18/20 20:12 Flush - Normal Saline 10 Ml Syringe IVF 10 ml Q12HR PRN Administration Saline Flush Temazepam 15 mg 05/13/20 13:44 05/17/20 21:55 Temazepam 15 Mg Cap PO 15 mg HSPRN PRN Administration Insomnia Zinc Sulfate 220 mg 05/13/20 09:00 05/19/20 08:36 Zinc Sulfate 220 Mg Cap PO 220 mg DAILY EDWINA Administration Hospitalist Exam Vitals: Vital Signs (12 hours) Temp Pulse Resp BP Pulse Ox 05/19/20 12:15 96.5 F L 74 18 135/68 94 L 05/19/20 08:44 97.3 F L 68 18 122/64 92 L 05/19/20 04:30 97.7 F 60 17 123/77 98 05/19/20 03:39 98 Weight Weight 257 lb 15.053 oz General Appearance: NAD Eye: PERRL, anicteric sclera ENT: normocephalic atraumatic, no oropharyngeal lesions Neck: supple, symmetric, no JVD Heart: RRR, no murmur, no rubs Respiratory: rales Gastrointestinal: soft, non-tender Hosp A/P (1) Persistent cough Code(s): R05 - COUGH Status: Acute (2) Pneumonia due to COVID-19 virus Code(s): U07.1 - COVID-19; J12.82 - PNEUMONIA DUE TO CORONAVIRUS DISEASE 2019 Status: Acute (3) Anxiety and depression Code(s): F41.9 - ANXIETY DISORDER, UNSPECIFIED; F32.9 - MAJOR DEPRESSIVE DISORDER, SINGLE EPISODE, UNSPECIFIED Status: Chronic (4) Essential hypertension Code(s): I10 - ESSENTIAL (PRIMARY) HYPERTENSION Status: Chronic - Plan plan for today 05/17 she is breathing better but still easily desats with movement. I will ad Benadryl PRN to sleep. will continue current management, will recheck labs in am. plan for today 05/18 She has been having episodes of hypotension in am. she had one today , she was given 1 l of NS, she responded to that. She has been on diuretics combo which I will stop. PT consulted. Plan for today 05/19 (recap) This is a 65-year-old woman who presents to the emergency department due to persistent coughing fits and subsequent shortness of breath associated with Covid infection which was diagnosed 2 weeks ago. The patient states that she is felt generally weak and has been very sedentary over the last several days. She saw her primary care physician Dr. Jeffrey who prescribed a 5-day course of azithromycin, she completed this 2 days ago. He also gave a 6-day course of oral steroids which she completed yesterday. She was advised to come in if her symptoms did not improve, prompting her to seek medical attention in the ER today. She states the most difficult thing to deal with has been the persisting coughing fits productive for clear sputum but leading to episodes of difficulty with her breathing. Pulmonary---- on Decadron day 6, [since she was diagnosed on April 25 with Covid she missed the window for remdesivir], she continues to improve day by day, she has less inspiratory crackles today, but she continues to desaturate with movement to below 80%, but saturating better at rest, today her cough is better. Cardiac--- patient has history of high blood pressure and was on diuretics, for the past 2 days she has been having low blood pressure, she responded to IV fluids but hypotension recurred, yesterday she was started on maintenance fluids, I will continue the maintenance fluids for now and reassess tomorrow. Psychiatry--- she does have depression and anxiety and remains on her meds. Renal--- we are monitoring her electrolytes on a daily basis. For DVT prophylaxis she is on Lovenox twice daily. Musculoskeletal--- PT is working with her on a daily basis.
[2020-05-19] MEDS: FLUoxetine HCl 20 MG CAP PO SCH (21:05)
[2020-05-19] MEDS: Atorvastatin Calcium 40 MG TAB PO SCH (21:05)
[2020-05-19] MEDS: Fish Oil 1,000 MG CAP PO SCH (21:05)
[2020-05-20] MEDS: Sodium Chloride 0.45% 1,000 ML IV SCH (03:37)
[2020-05-20 05:11] LABS: #Eosinphils 0.1 thou/uL (0.0-0.7); #Lymphocytes 1.7 thou/uL (1.20-3.40); #Neutrophils 7.6 thou/uL (1.40-6.50); %Basophils 0.4 % (0.0-1.0); %Eosinophils 0.6 % (0.0-10.0); %Lymphocytes 16.5 % (21.0-51.0); %Monocytes 9.3 % (0.0-10.0); %Neutrophils 73.1 % (42.0-75.0); Hemoglobin 11.5 g/dL (12.0-16.0); Mean Corpuscular HGB CONC 32.6 g/dL (32.0-36.0); Mean Corpuscular Hemoglobin 29.2 pg (27.0-31.0); Mean Corpuscular Volume 89.5 fL (78.0-98.0); Platelet Count 355 thou/uL (130-400); Red Blood Cell (RBC) Count 3.93 mill/uL (4.20-5.40); White Blood Cell (WBC) Count 10.4 thou/uL (4.8-10.8)
[2020-05-20 05:32] LABS: Anion Gap 12 mmol/L (10-20); BUN (Urea Nitrogen) 22 mg/dL (9.8-20.1); Calc. Creatinine Clearance 150 mL/min (70-130); Carbon Dioxide 21 mmol/L (23-31); Chloride 106 mmol/L (98-107); Glucose 107 mg/dL (80-115); Potassium 4.1 mmol/L (3.5-5.1); Sodium 135 mmol/L (136-145)
[2020-05-20] MEDS: Enoxaparin Sodium 40 MG/0.4 ML SYRINGE SC SCH ×2 (07:47→21:54)
[2020-05-20] MEDS: Dexamethasone 4 mg/ml Vial SLOW IVP SCH (07:47)
[2020-05-20] MEDS: Zinc Sulfate 220 MG CAP PO SCH (07:49)
[2020-05-20] MEDS: Ascorbic Acid 500 mg Chewable Tablet PO SCH (07:49)
[2020-05-20] MEDS: Famotidine 20 MG TAB PO SCH ×2 (07:49→21:58)
[2020-05-20] MEDS: Benzonatate 100 MG CAP PO PRN ×2 (09:04→13:11)
--- NOTE | 2020-05-20 15:06 | PDOC.HOSPP ---
- Subjective Encounter Date: 05/20/20 Subjective: Continues to to report improvement - Objective Vital Signs & Weight: Vital Signs (12 hours) Temp Pulse Resp BP Pulse Ox 05/20/20 12:00 98.4 F 66 16 131/58 L 97 05/20/20 08:00 97.0 F L 62 18 125/62 95 05/20/20 04:00 97.9 F 68 20 125/59 L 92 L Weight Weight 257 lb 15.053 oz I&O: 05/19/20 05/20/20 05/21/20 06:59 06:59 06:59 Intake Total 4644 2357 Output Total 0789 2152 Balance 2308 -408 Result Diagrams: 05/20/20 04:23 05/20/20 04:23 Hospitalist ROS - Medication Medications: Active Medications Generic Name Dose Route Start Last Admin Trade Name Freq PRN Reason Stop Dose Admin Acetaminophen 650 mg 05/12/20 17:55 05/16/20 21:29 Acetaminophen 325 Mg Tab PO 650 mg Q4H PRN Administration Headache/Fever/Mild Pain (1-3) Ascorbic Acid 1,000 mg 05/13/20 09:00 05/20/20 07:49 Ascorbic Acid 500 Mg Chewable Tablet PO 1,000 mg DAILY EDWINA Administration Atorvastatin Calcium 40 mg 05/12/20 21:00 05/19/20 21:05 Atorvastatin Calcium 40 Mg Tab PO 40 mg HS EDWINA Administration Benzonatate 100 mg 05/12/20 18:07 05/20/20 13:11 Benzonatate 100 Mg Cap PO 100 mg TIDPRN PRN Administration Cough Dexamethasone 6 mg 05/13/20 09:00 05/20/20 07:47 Dexamethasone 4 Mg/Ml Vial SLOW IVP 6 mg DAILY EDWINA Administration Enoxaparin Sodium 40 mg 05/12/20 21:00 05/20/20 07:47 Enoxaparin Sodium 40 Mg/0.4 Ml Syringe SC 40 mg 09,2099 EDWINA Administration Famotidine 20 mg 05/12/20 21:00 05/20/20 07:49 Famotidine 20 Mg Tab PO 20 mg BID EDWINA Administration Fish Oil 1,000 mg 05/13/20 21:00 05/19/20 21:05 Fish Oil 1,000 Mg Cap PO 1,000 mg HS EDWINA Administration Fluoxetine HCl 40 mg 05/12/20 21:00 05/19/20 21:05 Fluoxetine Hcl 20 Mg Cap PO 40 mg HS EDWINA Administration Guaifenesin/Codeine Phosphate 10 ml 05/13/20 13:44 05/18/20 23:09 Guaifenesin/Codeine 200 Mg/20 Mg 10 Ml Cup PO 10 ml Q6H PRN Administration Cough Sodium Chloride 10 ml 05/12/20 17:55 05/18/20 20:12 Flush - Normal Saline 10 Ml Syringe IVF 10 ml Q12HR PRN Administration Saline Flush Temazepam 15 mg 05/13/20 13:44 05/17/20 21:55 Temazepam 15 Mg Cap PO 15 mg HSPRN PRN Administration Insomnia Zinc Sulfate 220 mg 05/13/20 09:00 05/20/20 07:49 Zinc Sulfate 220 Mg Cap PO 220 mg DAILY EDWINA Administration Hospitalist Exam Vitals: Vital Signs (12 hours) Temp Pulse Resp BP Pulse Ox 05/20/20 12:00 98.4 F 66 16 131/58 L 97 05/20/20 08:00 97.0 F L 62 18 125/62 95 05/20/20 04:00 97.9 F 68 20 125/59 L 92 L Weight Weight 257 lb 15.053 oz General Appearance: NAD, awake alert Eye: PERRL, anicteric sclera ENT: normocephalic atraumatic, no oropharyngeal lesions Neck: supple, symmetric, no JVD Heart: RRR, no murmur, no gallops Respiratory: CTAB, no wheezes, no rales Gastrointestinal: soft, non-tender, non-distended Extremities: no cyanosis, no clubbing Hosp A/P (1) Persistent cough Code(s): R05 - COUGH Status: Acute (2) Pneumonia due to COVID-19 virus Code(s): U07.1 - COVID-19; J12.82 - PNEUMONIA DUE TO CORONAVIRUS DISEASE 2019 Status: Acute (3) Anxiety and depression Code(s): F41.9 - ANXIETY DISORDER, UNSPECIFIED; F32.9 - MAJOR DEPRESSIVE DISORDER, SINGLE EPISODE, UNSPECIFIED Status: Chronic (4) Essential hypertension Code(s): I10 - ESSENTIAL (PRIMARY) HYPERTENSION Status: Chronic - Plan plan for today 2/6 she is breathing better but still easily desats with movement. I will ad Benadryl PRN to sleep. will continue current management, will recheck labs in am. plan for today 05/18 She has been having episodes of hypotension in am. she had one today , she was given 1 l of NS, she responded to that. She has been on diuretics combo which I will stop. PT consulted. Plan for today 05/19 (recap) This is a 65-year-old woman who presents to the emergency department due to persistent coughing fits and subsequent shortness of breath associated with Covid infection which was diagnosed 2 weeks ago. The patient states that she is felt generally weak and has been very sedentary over the last several days. She saw her primary care physician Dr. Jeffrey who prescribed a 5-day course of azithromycin, she completed this 2 days ago. He also gave a 6-day course of oral steroids which she completed yesterday. She was advised to come in if her symptoms did not improve, prompting her to seek medical attention in the ER today. She states the most difficult thing to deal with has been the persisting coughing fits productive for clear sputum but leading to episodes of difficulty with her breathing. Pulmonary---- on Decadron day 6, [since she was diagnosed on April 25 with Covid she missed the window for remdesivir], she continues to improve day by day, she has less inspiratory crackles today, but she continues to desaturate with movement to below 80%, but saturating better at rest, today her cough is better. Cardiac--- patient has history of high blood pressure and was on diuretics, for the past 2 days she has been having low blood pressure, she responded to IV fluids but hypotension recurred, yesterday she was started on maintenance fluids, I will continue the maintenance fluids for now and reassess tomorrow. Psychiatry--- she does have depression and anxiety and remains on her meds. Renal--- we are monitoring her electrolytes on a daily basis. For DVT prophylaxis she is on Lovenox twice daily. Musculoskeletal--- PT is working with her on a daily basis. Plan for today 05/20 She continues to improve but when I decreased her oxygen to 3 L and she stood up moved couple steps her pulse ox did drop to below 90% although she is eager to go home I think she still not ready. I will stop her fluids but otherwise continue current management.
[2020-05-20] MEDS: Acetaminophen 325 MG TAB PO PRN ×2 (17:58→21:59)
[2020-05-20] MEDS: Atorvastatin Calcium 40 MG TAB PO SCH (21:53)
[2020-05-20] MEDS: FLUoxetine HCl 20 MG CAP PO SCH (21:53)
[2020-05-20] MEDS: Temazepam 15 MG CAP PO PRN (21:57)
[2020-05-21 04:21] LABS: #Eosinphils 0.1 thou/uL (0.0-0.7); #Lymphocytes 1.6 thou/uL (1.20-3.40); #Monocytes 0.9 thou/uL (0.11-0.59); #Neutrophils 6.5 thou/uL (1.40-6.50); %Basophils 0.4 % (0.0-1.0); %Eosinophils 0.6 % (0.0-10.0); %Lymphocytes 17.7 % (21.0-51.0); %Monocytes 9.9 % (0.0-10.0); %Neutrophils 71.3 % (42.0-75.0); Hemoglobin 11.9 g/dL (12.0-16.0); Mean Corpuscular HGB CONC 33.5 g/dL (32.0-36.0); Mean Corpuscular Hemoglobin 30.4 pg (27.0-31.0); Mean Corpuscular Volume 90.6 fL (78.0-98.0); Mean Platelet Volume 7.7 fL (7.4-10.4); Platelet Count 322 thou/uL (130-400); RBC Distribution Width 11.9 % (11.5-14.5); Red Blood Cell (RBC) Count 3.93 mill/uL (4.20-5.40); White Blood Cell (WBC) Count 9.2 thou/uL (4.8-10.8)
[2020-05-21 04:41] LABS: Anion Gap 13 mmol/L (10-20); BUN (Urea Nitrogen) 22 mg/dL (9.8-20.1); Calc. Creatinine Clearance 146 mL/min (70-130); Calcium 8.2 mg/dL (7.8-10.44); Carbon Dioxide 23 mmol/L (23-31); Chloride 102 mmol/L (98-107); Glucose 108 mg/dL (80-115); Potassium 4.1 mmol/L (3.5-5.1); Sodium 134 mmol/L (136-145)
[2020-05-21] MEDS ORDERED: Ondansetron ODT 4 MG TAB SL PRN (07:47)
[2020-05-21] MEDS ORDERED: Bisacodyl 5 MG TAB PO PRN (07:47)
[2020-05-21] MEDS ORDERED: Ondansetron PF 4 MG/2 ML Vial IVP PRN (07:47)
[2020-05-21] MEDS ORDERED: Calcium Carbonate 500 MG ChewTAB PO PRN (07:47)
[2020-05-21] MEDS ORDERED: hydrALAZINE 20 MG/ML VIAL SLOW IVP PRN (07:47)
[2020-05-21] MEDS ORDERED: HYDROcodone/Acetaminophen 5/325 mg Tablet PO PRN (07:47)
[2020-05-21] MEDS ORDERED: Loperamide HCl 2 MG CAP PO PRN (07:47)
[2020-05-21] MEDS ORDERED: GUAIFENESIN SF SOLN 200 MG/10 ML UDCUP PO PRN (07:47)
[2020-05-21] MEDS ORDERED: Sodium Chloride 0.65% Nasal 44 ML BOT EA NARE PRN (07:47)
[2020-05-21] MEDS ORDERED: Cepastat Lozenges 1 LOZ PO PRN (07:47)
[2020-05-21] MEDS ORDERED: Senokot S 8.6-50 MG TAB PO PRN (07:47)
[2020-05-21] MEDS: Enoxaparin Sodium 40 MG/0.4 ML SYRINGE SC SCH ×2 (09:21→20:48)
[2020-05-21] MEDS: Zinc Sulfate 220 MG CAP PO SCH (09:22)
[2020-05-21] MEDS: Famotidine 20 MG TAB PO SCH ×2 (09:22→20:48)
[2020-05-21] MEDS: guaiFENesin/Codeine 200 mg/20 mg 10 ml Cup PO PRN (09:23)
[2020-05-21] MEDS: Benzonatate 100 MG CAP PO PRN (09:23)
[2020-05-21] MEDS: Dexamethasone 4 mg/ml Vial SLOW IVP SCH (09:23)
[2020-05-21] MEDS: Ascorbic Acid 500 mg Chewable Tablet PO SCH (09:23)
[2020-05-21] MEDS: Acetaminophen 325 MG TAB PO PRN (09:50)
--- NOTE | 2020-05-21 10:03 | RAD ---
CHEST 1 VIEW: HISTORY: COVID pneumonia followup. COMPARISON: 05/12/2009 exam. FINDINGS: Heart size and mediastinum within normal limits. Bilateral lung infiltrates are similar to the prior exam. IMPRESSION: Essentially stable exam. POS: [facility]
--- NOTE | 2020-05-21 12:13 | PDOC.HOSPP ---
- Subjective Encounter Date: 05/21/20 Encounter Time: 07:20 Subjective: Patient seen and examined. No new complaints. No overnight events - Objective Vital Signs & Weight: Vital Signs (12 hours) Temp Pulse Resp BP Pulse Ox 05/21/20 09:30 97.8 F 70 18 127/68 100 05/21/20 03:49 97.8 F 74 22 H 116/59 L 94 L Weight Weight 257 lb 15.053 oz I&O: 05/20/20 05/21/20 05/22/20 06:59 06:59 06:59 Intake Total 2367 1895 Output Total 2850 8286 1100 Balance -564 -7906 -1100 Result Diagrams: 05/21/20 04:02 05/21/20 04:02 Radiology Reviewed by me: Yes EKG Reviewed by me: Yes Hospitalist ROS - Review of Systems Constitutional: denies: fever, chills, sweats, weakness, malaise, other Respiratory: denies: cough, dry, shortness of breath, hemoptysis, SOB with excertion, pleuritic pain, sputum, wheezing, other Cardiovascular: denies: chest pain, palpitations, orthopnea, paroxysmal noc. dyspnea, edema, light headedness, other Gastrointestinal: denies: nausea, vomiting, abdominal pain, diarrhea, constipation, melena, hematochezia, other Genitourinary: denies: dysuria, frequency, incontinence, hematuria, retention, other Musculoskeletal: denies: neck pain, shoulder pain, arm pain, back pain, hand pain, leg pain, foot pain, other - Medication Medications: Active Medications Generic Name Dose Route Start Last Admin Trade Name Leonelq PRN Reason Stop Dose Admin Acetaminophen 650 mg 05/12/20 17:55 05/21/20 09:50 Acetaminophen 325 Mg Tab PO 650 mg Q4H PRN Administration Headache/Fever/Mild Pain (1-3) Ascorbic Acid 1,000 mg 05/13/20 09:00 05/21/20 09:23 Ascorbic Acid 500 Mg Chewable Tablet PO 1,000 mg DAILY EDWINA Administration Atorvastatin Calcium 40 mg 05/12/20 21:00 05/20/20 21:53 Atorvastatin Calcium 40 Mg Tab PO 40 mg HS EDWINA Administration Benzonatate 100 mg 05/12/20 18:07 05/21/20 09:23 Benzonatate 100 Mg Cap PO 100 mg TIDPRN PRN Administration Cough Dexamethasone 6 mg 05/13/20 09:00 05/21/20 09:23 Dexamethasone 4 Mg/Ml Vial SLOW IVP 6 mg DAILY EDWINA Administration Enoxaparin Sodium 40 mg 05/12/20 21:00 05/21/20 09:21 Enoxaparin Sodium 40 Mg/0.4 Ml Syringe SC 40 mg 0900,2100 EDWINA Administration Famotidine 20 mg 05/12/20 21:00 05/21/20 09:22 Famotidine 20 Mg Tab PO 20 mg BID EDWINA Administration Fish Oil 1,000 mg 05/13/20 21:00 05/19/20 21:05 Fish Oil 1,000 Mg Cap PO 1,000 mg HS EDWINA Administration Fluoxetine HCl 40 mg 05/12/20 21:00 05/20/20 21:53 Fluoxetine Hcl 20 Mg Cap PO 40 mg HS EDWINA Administration Guaifenesin/Codeine Phosphate 10 ml 05/13/20 13:44 05/21/20 09:23 Guaifenesin/Codeine 200 Mg/20 Mg 10 Ml Cup PO 10 ml Q6H PRN Administration Cough Sodium Chloride 10 ml 05/12/20 17:55 05/18/20 20:12 Flush - Normal Saline 10 Ml Syringe IVF 10 ml Q12HR PRN Administration Saline Flush Sodium Chloride 10 ml 05/12/20 17:55 05/21/20 09:28 Flush - Normal Saline 10 Ml Syringe IVF 10 ml PRN PRN Administration Saline Flush Temazepam 15 mg 05/13/20 13:44 05/20/20 21:57 Temazepam 15 Mg Cap PO 15 mg HSPRN PRN Administration Insomnia Zinc Sulfate 220 mg 05/13/20 09:00 05/21/20 09:22 Zinc Sulfate 220 Mg Cap PO 220 mg DAILY EDWINA Administration Hospitalist Exam Vitals: Vital Signs (12 hours) Temp Pulse Resp BP Pulse Ox 05/21/20 09:30 97.8 F 70 18 127/68 100 05/21/20 03:49 97.8 F 74 22 H 116/59 L 94 L Weight Weight 257 lb 15.053 oz General Appearance: NAD, awake alert Eye: PERRL, anicteric sclera ENT: normocephalic atraumatic, no oropharyngeal lesions Neck: supple, symmetric, no JVD, no thyromegaly Heart: RRR, no murmur, no gallops, no rubs Respiratory: no wheezes, no rales, no ronchi Gastrointestinal: soft, non-tender, non-distended, normal bowel sounds Extremities: no cyanosis, no clubbing, no edema Skin: normal turgor, no lesions Neurological: no focal deficits Musculoskeletal: normal tone, normal strength Psychiatric: normal affect, normal behavior Hosp A/P (1) MARICHUY (acute kidney injury) Code(s): N17.9 - ACUTE KIDNEY FAILURE, UNSPECIFIED Status: Resolved (2) Pneumonia due to COVID-19 virus Code(s): U07.1 - COVID-19; J12.82 - PNEUMONIA DUE TO CORONAVIRUS DISEASE 2019 Status: Acute (3) Anxiety and depression Code(s): F41.9 - ANXIETY DISORDER, UNSPECIFIED; F32.9 - MAJOR DEPRESSIVE DISORDER, SINGLE EPISODE, UNSPECIFIED Status: Chronic (4) Essential hypertension Code(s): I10 - ESSENTIAL (PRIMARY) HYPERTENSION Status: Chronic (5) Hyperlipidemia Code(s): E78.5 - HYPERLIPIDEMIA, UNSPECIFIED Status: Chronic - Plan old records reviewed/req, respiratory therapy Patient wants to go home today, patient is on 2 L nasal cannula oxygen, with exertion sometimes her oxygen saturation drops, otherwise patient is completely asymptomatic, will arrange oxygen before discharge, and will also do again ambulatory oxygen study with oxygen to make sure her oxygen saturation are dropping, otherwise patient would be able to go home today
--- NOTE | 2020-05-21 12:15 | PDOC.DS.DS ---
Provider Date of Admission: 05/13/20 12:11 Date of Discharge: 05/22/20 Admitting Provider: Kalyani Monge MD Primary Care Physician: LALO GOODRICH JR, MD Course Hospital Course: Patient was admitted for COVID-19 infection, on x-ray she had a Covid pneumonia, CT angiography also showed Covid pneumonia, based on her prolonged onset of symptoms she did not qualify for remdesivir therapy, we treated her with oxygen, dexamethasone, vitamin supplementation, she remained in the hospital for longer period of time because her oxygen saturation was slowly improving, still by the time of discharge she was requiring oxygen so with help of bilingual case manager we are arranging home oxygen, she will finish her steroid and vitamin supplementation, otherwise patient is overall doing better, I have seen and examined bedside today, patient prefers to go home, Resuscitation Status: 05/12/20 17:55 Resuscitation Status Routine Co-Sign Provider: Resuscitation Status: FULL: Full Resuscitation Lab Results: 05/21/20 04:02 05/21/20 04:02 Abnormal Lab Results - Last 48 hrs 05/20/20 04:23: Sodium 135 L, Carbon Dioxide 21 L, BUN 22 H 05/20/20 04:23: RBC 3.93 L, Hgb 11.5 L, Hct 35.1 L, Lymphocytes % 16.5 L, Neutrophils # 7.6 H, Monocytes # 1.0 H 05/21/20 04:02: Sodium 134 L, BUN 22 H 05/21/20 04:02: RBC 3.93 L, Hgb 11.9 L, Hct 35.6 L, Lymphocytes % 17.7 L, Monocytes # 0.9 H Vitals: Vital Signs (12 hours) Temp Pulse Resp BP Pulse Ox 05/21/20 09:30 97.8 F 70 18 127/68 100 05/21/20 03:49 97.8 F 74 22 H 116/59 L 94 L Weight Weight 257 lb 15.053 oz Physical Exam: The patient was seen and examined on the day of discharge. General Appearance: NAD, awake alert Eye: PERRL, anicteric sclera ENT: normocephalic atraumatic, no oropharyngeal lesions Neck: supple, symmetric, no JVD, no thyromegaly Respiratory: CTAB, no wheezes, no rales, no ronchi Cardiovascular: RRR, no murmur, no gallops, no rubs Gastrointestinal: soft, non-tender, non-distended, normal bowel sounds Extremities: no cyanosis, no clubbing, no edema Skin: normal turgor, no lesions Neurological: no focal deficits Musculoskeletal: normal tone, normal strength PSYCH: normal affect, normal behavior Problem (1) MARICHUY (acute kidney injury) Code(s): N17.9 - ACUTE KIDNEY FAILURE, UNSPECIFIED Status: Resolved (2) Pneumonia due to COVID-19 virus Code(s): U07.1 - COVID-19; J12.82 - PNEUMONIA DUE TO CORONAVIRUS DISEASE 2019 Status: Acute (3) Anxiety and depression Code(s): F41.9 - ANXIETY DISORDER, UNSPECIFIED; F32.9 - MAJOR DEPRESSIVE DISORDER, SINGLE EPISODE, UNSPECIFIED Status: Chronic (4) Essential hypertension Code(s): I10 - ESSENTIAL (PRIMARY) HYPERTENSION Status: Chronic (5) Hyperlipidemia Code(s): E78.5 - HYPERLIPIDEMIA, UNSPECIFIED Status: Chronic Plan Prescriptions: Dexamethasone 6 mg PO DAILY #5 tablet Albuterol Sulfate [Proventil Hfa] 2 puff INH Q4H PRN #1 aer PRN Reason: Wheezing Benzonatate [Tessalon] 100 mg PO TIDPRN PRN #30 cap PRN Reason: Cough Ascorbic Acid [Vitamin C] 1,000 mg PO DAILY #30 tab Zinc Sulfate 220 mg PO DAILY #14 cap Home Medications: Medication Instructions Recorded Confirmed Type Atorvastatin Calcium 40 mg PO HS 03/23/18 05/13/20 History FLUoxetine HCl [Fluoxetine HCl] 40 mg PO HS 03/23/18 05/13/20 History Triamterene/Hydrochlorothiazid 1 each PO HS 03/23/18 05/13/20 History [Triamterene-Hctz 37.5-25 mg Cp] Albuterol Sulfate [Proventil Hfa] 2 puff INH Q4H PRN #1 aer 05/21/20 Rx Ascorbic Acid [Vitamin C] 1,000 mg PO DAILY #30 tab 05/21/20 Rx Benzonatate [Tessalon] 100 mg PO TIDPRN PRN #30 cap 05/21/20 Rx Dexamethasone 6 mg PO DAILY #5 tablet 05/21/20 Rx Zinc Sulfate 220 mg PO DAILY #14 cap 05/21/20 Rx Allergies: No Known Allergies Allergy (Verified 07/02/19 20:23) Activity:: Activity as Tolerated Nourishment:: Heart Healthy Diet Therapies:: Not Applicable Equipment/Supplies:: Oxygen IV Therapy:: Not Applicable Referrals: Lalo Goodrich Jr, MD [Primary Care Provider] - Disposition: HOME Quality CORE MEASURES:: N/A
[2020-05-21 20:30] VITALS: BMI 42.9
[2020-05-21] MEDS: Fish Oil 1,000 MG CAP PO SCH (20:48)
[2020-05-21] MEDS: FLUoxetine HCl 20 MG CAP PO SCH (20:48)
[2020-05-21] MEDS: Atorvastatin Calcium 40 MG TAB PO SCH (20:48)
[2020-05-22] MEDS ORDERED: Furosemide 40 MG/4 ML VIAL SLOW IVP SCH (07:45)
[2020-05-22] MEDS ORDERED: Dexamethasone 4 MG TAB PO SCH (08:00)
[2020-05-22] MEDS: Zinc Sulfate 220 MG CAP PO SCH (09:22)
[2020-05-22] MEDS: Ascorbic Acid 500 mg Chewable Tablet PO SCH (09:22)
[2020-05-22] MEDS: Famotidine 20 MG TAB PO SCH (09:22)
[2020-05-22] MEDS: Enoxaparin Sodium 40 MG/0.4 ML SYRINGE SC SCH (09:22)
[2020-05-22 14:48] VITALS: BP 111/50; TEMP 98
== END 2020-05-22 16:02 | disposition home or self-care (01) | DRG 177 ==
LOC: ERS 13:58 → ERHOLD 16:56 → 2SE 05-13 02:50 → OBSVTOIN 05-13 12:11
PROVIDERS: ADMIT Internal Medicine; ATTEND Internal Medicine
PROC: 8E0ZXY6 Isolation (ICD-10-PCS; principal; 2020-05-13)
DX: U07.1 COVID-19 (principal); J12.82 Pneumonia due to coronavirus disease 2019; J96.01 Acute respiratory failure with hypoxia; N17.9 Acute kidney failure, unspecified; F32.9 Major depressive disorder, single episode, unspecified; F41.9 Anxiety disorder, unspecified; I10 Essential (primary) hypertension; E78.5 Hyperlipidemia, unspecified; Z79.899 Other long term (current) drug therapy
CPT/HCPCS: 0240U; 36415; 36416; 71045; 71046; 71275; 80048; 80053; 82728; 83605; 83735; 83880; 84484; 85025; 85379; 86140; 93005; 96372; 96374; 96376; G0378; J1100; J1650; J3475; J8540; Q9967

== ENCOUNTER 2021-06-12 14:10 | Outpatient (CLI) | payer BC, MEDICARE | END 2021-06-12 14:11 | disposition home or self-care (01) | LOC: BICMAMMO 14:10 | PROVIDERS: ATTEND Family Medicine | DX: Z12.31 Encounter for screening mammogram for malignant neoplasm of breast (principal); Z13.820 Encounter for screening for osteoporosis; Z78.0 Asymptomatic menopausal state; Z80.3 Family history of malignant neoplasm of breast | CPT/HCPCS: 77063; 77067; 77080 ==

== ENCOUNTER 2022-03-09 13:44 | Outpatient (CLI) | payer MEDICARE, BC | END 2022-03-09 13:45 | disposition home or self-care (01) | LOC: BICRAD 13:44 | PROVIDERS: ATTEND Family Medicine | DX: M25.512 Pain in left shoulder (principal) ==

== ENCOUNTER 2023-03-08 13:45 | Outpatient (CLI) | payer BC, MEDICARE | END 2023-03-08 13:46 | disposition home or self-care (01) | LOC: BICMAMMO 13:45 | PROVIDERS: ATTEND Family Medicine | DX: Z12.31 Encounter for screening mammogram for malignant neoplasm of breast (principal); N64.89 Other specified disorders of breast; Z80.3 Family history of malignant neoplasm of breast | CPT/HCPCS: 77063; 77067 ==

== ENCOUNTER 2023-03-15 14:17 | Outpatient (CLI) | payer BC, MEDICARE | END 2023-03-15 14:18 | disposition home or self-care (01) | LOC: BICMAMMO 14:17 | PROVIDERS: ATTEND Family Medicine | DX: N64.89 Other specified disorders of breast (principal) | CPT/HCPCS: G0279 ==

== ENCOUNTER 2024-02-12 14:10 | Emergency (ER) | payer MEDICARE, BC | END 2024-02-12 17:09 | disposition home or self-care (01) | LOC: ERS 14:10 | DX: U07.1 COVID-19 (principal); S40.011A Contusion of right shoulder, initial encounter; I10 Essential (primary) hypertension; W01.0XXA Fall on same level from slipping, tripping and stumbling without subsequent striking against object, initial encounter | CPT/HCPCS: 87426; 99283 ==